=== PATIENT | female | born 1935 | race Caucasian/White ===

== ENCOUNTER → 2020-08-10 15:43 | Outpatient (CLI) | payer BC, MEDICAID, SELFPAY ==
[2020-08-12 11:01] LABS: Covid-19 Nasal PCR Sendout P&C POSITIVE
== END ==
PROVIDERS: Visit Provider Emergency Medicine
DX: U07.1 COVID-19 (principal)
CPT/HCPCS: U0004

== ENCOUNTER 2021-03-12 18:45 | Inpatient (IN) | payer BC, MEDICAID, SELFPAY ==
[2021-03-12] VITALS (21 sets, daily range): BP systolic 73–104; BP diastolic 36–85; PULSE 71–122; RESP 14–22; TEMP 35.4–36.5; O2SAT 92–99; BMI 32.3
--- NOTE | 2021-03-12 18:48 | HMH.EDGENADL ---
ED Disposition <Trevon Del Castillo - Last Filed: 03/12/21 20:11> Condition on Discharge: Serious - Critical Care Critical Care Time: No <Moiz Cruz - Last Filed: 03/12/21 23:53> Clinical Impression: Severe sepsis with acute organ dysfunction, Septic shock, Thrombocytopenia, Renal insufficiency UTI (urinary tract infection) Qualifiers: Urinary tract infection type: site unspecified Hematuria presence: without hematuria Qualified Code(s): N39.0 - Urinary tract infection, site not specified Disposition: Admitted As Inpatient Attestation: On 03/12/21, the high probability of a clinically significant, sudden or life threatening deterioration of the following system(s) required my full and direct attention, intervention and personal management. The time I documented below is in addition to time spent performing reported procedures but includes the following listed in this critical care notation. Medical Decision Making - Lab Data Result diagrams: 03/12/21 18:52 03/12/21 18:52 <Trevon Del Castillo - Last Filed: 03/12/21 20:11> - Medical Records Medical records reviewed: Yes: I reviewed the patient's medical records. - Payam Inquiry Pt receiving controlled substance: No - Lab Data Lab results reviewed: Yes: I reviewed the patient's lab results. Result diagrams: 03/12/21 18:52 03/12/21 18:52 - Radiology Data #1 Image(s): Chest, Knee Image Reviewed: Yes I reviewed the patient's radiology image, Yes I have reviewed radiologist's interpretation Preliminary Findings: No Fracture Seen - CT Data CT Scan: Head Time Received: 23:[address] Reviewed: Yes: I have viewed the radiologist's interpretation Preliminary Findings: Abnormal - ECG Data Tracing #1 Normal Sinus Rhythm: Yes Ischemic changes: non-specific ST-T wave changes - Tissue Perfus/Sepsis Re-Eval Sepsis Re-Evaluation Performed: Yes Date Performed: 03/12/21 Time Performed: 23:48 <Moiz Cruz - Last Filed: 03/12/21 23:53> Vital Signs: 03/12/21 18:46 03/12/21 19:01 03/12/21 19:04 Temperature 97.7 F Temperature Source Oral Pulse Rate 77 77 Pulse Rate [Right] 122 H Respiratory Rate 18 18 18 Blood Pressure 80/36 L 91/62 L Blood Pressure [Right Arm] 86/54 L Blood Pressure Mean 58 71 Blood Pressure Mean [Right Arm] 64 02 Sat by Pulse Oximetry 95 98 Oxygen Delivery Method Room Air 03/12/21 19:31 03/12/21 20:31 03/12/21 21:00 Temperature Temperature Source Pulse Rate 77 72 72 Pulse Rate [Right] Respiratory Rate 16 16 18 Blood Pressure 104/58 L 93/42 L 85/42 L Blood Pressure [Right Arm] Blood Pressure Mean 65 59 56 Blood Pressure Mean [Right Arm] 02 Sat by Pulse Oximetry 97 93 L 99 Oxygen Delivery Method 03/12/21 21:32 03/12/21 21:35 03/12/21 21:58 Temperature 95.8 F L 96.3 F L Temperature Source Rectal Rectal Pulse Rate 78 Pulse Rate [Right] Respiratory Rate 22 Blood Pressure 104/85 L Blood Pressure [Right Arm] Blood Pressure Mean 90 Blood Pressure Mean [Right Arm] 02 Sat by Pulse Oximetry 94 L Oxygen Delivery Method 03/12/21 22:00 03/12/21 22:17 03/12/21 22:25 Temperature 97.1 F L Temperature Source Rectal Pulse Rate 76 76 76 Pulse Rate [Right] Respiratory Rate 16 14 14 Blood Pressure 88/55 L 73/52 L 94/53 L Blood Pressure [Right Arm] Blood Pressure Mean 66 58 66 Blood Pressure Mean [Right Arm] 02 Sat by Pulse Oximetry 94 L 97 92 L Oxygen Delivery Method 03/12/21 22:30 03/12/21 22:45 03/12/21 23:00 Temperature Temperature Source Pulse Rate 78 76 79 Pulse Rate [Right] Respiratory Rate 16 15 16 Blood Pressure 86/40 L 85/38 L 80/52 L Blood Pressure [Right Arm] Blood Pressure Mean 55 61 54 Blood Pressure Mean [Right Arm] 02 Sat by Pulse Oximetry 94 L 96 94 L Oxygen Delivery Method 03/12/21 23:01 03/12/21 23:15 03/12/21 23:35 Temperature 96.6 F L 96.9 F L Temperature Source Rectal Rectal Pulse
--- NOTE | 2021-03-12 18:53 | CT_ITS ---
PROCEDURE INFORMATION: Exam: CT Head Without Contrast Exam date and time: 03/12/2021 6:53 PM Age: 85 years old Clinical indication: Altered mental status/memory loss; Confusion or disorientation; Patient HX: AMS TECHNIQUE: Imaging protocol: Computed tomography of the head without contrast. Radiation optimization: All CT scans at this facility use at least one of these dose optimization techniques: automated exposure control; mA and/or kV adjustment per patient size (includes targeted exams where dose is matched to clinical indication); or iterative reconstruction. COMPARISON: No relevant prior studies available. FINDINGS: Brain: Atrophy and chronic small vessel ischemic changes. No hemorrhage. No mass effect or midline shift. Large area of encephalomalacia in the left posterior parietal region. Cerebral ventricles: No ventriculomegaly. Paranasal sinuses: Visualized sinuses are unremarkable. No fluid levels. Mastoid air cells: Visualized mastoid air cells are well aerated. Bones/joints: Unremarkable. No acute fracture. Soft tissues: Unremarkable. IMPRESSION: Chronic changes in the brain but no acute intracranial abnormality.
--- NOTE | 2021-03-12 18:53 | XR_ITS ---
PROCEDURE INFORMATION: Exam: XR Chest Exam date and time: 03/12/2021 6:53 PM Age: 85 years old Clinical indication: Shortness of breath TECHNIQUE: Imaging protocol: XR of the chest. Views: 1 view. COMPARISON: No relevant prior studies available. FINDINGS: Lungs: Left lower lobe densities which could reflect atelectasis or pneumonia. Pleural spaces: Mild left pleural effusion. Heart/Mediastinum: Unremarkable. No cardiomegaly. Bones/joints: Unremarkable. IMPRESSION: Left lower lobe atelectasis versus pneumonia and mild left pleural effusion.
[2021-03-12 19:09] LABS: Basophils % 0.3 % (0.1-2.0); Eosinophils # 0.1 K/mm3 (0.0-0.4); Eosinophils % 2.2 % (0.1-12.0); Hematocrit 33.4 % (37.0-47.0); Hemoglobin 11.1 g/dL (12.2-16.2); Lymphocytes # 2.5 K/mm3 (0.7-4.5); Lymphocytes % 54.6 % (10-50); Mean Corpuscular HGB Conc 33.1 g/dL (31.8-35.4); Mean Corpuscular Hemoglobin 34.8 pg (27.0-31.2); Mean Corpuscular Volume 104.9 fl (81-99); Mean Platelet Volume 9.3 fl (7.4-10.4); Monocytes # 0.2 K/mm3 (0.1-1.0); Monocytes % 4.7 % (1.7-9.3); Neutrophils # 1.7 K/mm3 (1.8-7.8); Neutrophils % 38.2 % (37.0-80.0); Platelet Count 98 K/mm3 (142-424); Red Blood Count 3.19 M/mm3 (4.20-5.40); Red Cell Distribution Width 16.4 % (11.5-17.5); White Blood Count 4.6 K/mm3 (4.8-10.8)
--- NOTE | 2021-03-12 19:09 | XR_ITS ---
PROCEDURE INFORMATION: Exam: XR Right Knee Exam date and time: 03/12/2021 7:09 PM Age: 85 years old Clinical indication: Patient HX: Right knee bruising, unknown injury TECHNIQUE: Imaging protocol: XR Right knee. Views: 3 views. COMPARISON: No relevant prior studies available. FINDINGS: Bones/joints: Severe tricompartmental joint space narrowing and osteophyte formation. No acute fracture or dislocation. Soft tissues: Normal. IMPRESSION: Severe degenerative changes. No acute fracture or dislocation.
--- NOTE | 2021-03-12 19:12 | ECG_ITS ---
APPROVED REPORT Exam: Resting ECG HR:139 bpm ECG Measurements Heart Rate 139 AXES WY 104 P QRSd 4 QRS 0 QT 258 T -25 QTc 392 Conclusion Sinus rhythm with short WY with premature supraventricular complexes with frequent and consecutive premature ventricular complexes and fusion complexes Indeterminate axis Pulmonary disease pattern Nonspecific T wave abnormality Abnormal ECG Electronically signed by : Jatin Edwards MD 03/13/2021 09:39:22
[2021-03-12 19:14] LABS: MANUAL DIFFERENTIAL MANUAL DIFFERENTIAL (MANUAL DIFF)
[2021-03-12 19:24] LABS: Alanine Aminotransferase 15 U/L (12-78); Albumin Level 3.4 g/dl (3.5-5.0); Albumin/Globulin Ratio 0.9 (1.1-1.8); Alkaline Phosphatase 58 U/L (38-126); Aspartate Amino Transferase 35 U/L (14-36); Bilirubin,Total 0.4 mg/dl (0.2-1.3); Blood Urea Nitrogen 51 mg/dl (7-17); Calcium 9.2 mg/dl (8.4-10.2); Carbon Dioxide 26 mmol/L (22.0-30.0); Chloride 103 mmol/L (98-107); Creatinine Clearance Estimated 41 mL/min (50-200); Estimated Glomerular Filt Rate 33 ml/min (>60); GFR (African American) 40 ML/MIN (>60); Globulin 3.7 g/dL (1.3-3.2); Glucose 105 mg/dl (74-100); Sodium 138 mmol/L (136-145); Total Protein,Serum 7.1 g/dl (6.3-8.2)
[2021-03-12 19:35] LABS: ABG Base Excess -2.2 mmol/L (-2.4-2.3); ABG HCO3 21.7 mmhg (22.0-26.0); ABG Oxygen Saturation 97 % (90-100); ABG PCO2 31.3 mmhg (35.0-45.0); ABG PH 7.46 mmol/L (7.35-7.45); ABG PO2 87.1 mmhg (80-100); ABG TCO2 22.6 mmhg (23-27); Allen's Test Patient Unable; Oxygen RA %; Source Left Radial
[2021-03-12 19:36] LABS: Adenovirus,PCR Not Detected (NotDetected); Bordetella Pertussis Not Detected (NotDetected); Chlamydophila Pneumoniae, PCR Not Detected (NotDetected); Coronavirus 19, PCR Not Detected (NotDetected); Coronavirus 229E Not Detected (NotDetected); Coronavirus NL63 Not Detected (NotDetected); Coronavirus OC43 Not Detected (NotDetected); Coronovirus HKU1,PCR Not Detected (NotDetected); Human Metapneumovirus Not Detected (NotDetected); Influenza A, PCR Not Detected (NotDetected); Influenza AH1, 2009 Not Detected (NotDetected); Influenza AH1, PCR Not Detected (NotDetected); Influenza AH3,PCR Not Detected (NotDetected); Influenza B, PCR Not Detected (NotDetected); Mycoplasma Pneumoniae, PCR Not Detected (NotDetected); Parainfluenza 1, PCR Not Detected (NotDetected); Parainfluenza 2, PCR Not Detected (NotDetected); Parainfluenza 3, PCR Not Detected (NotDetected); Parainfluenza 4, PCR Not Detected (NotDetected); Respiratory Syncytial Virus Not Detected (NotDetected); Rhinovirus/Enterovirus Not Detected (NotDetected)
[2021-03-12 19:43] LABS: Lymphocytes % 75 % (10-50); Neutrophils % 25 % (42-76); Platelet Estimate Normal; RBC Morphology Normal; Rouleaux 1+; Total Cells Counted 100
[2021-03-12 20:02] LABS: Erythrocyte Sedimentation Rate 79 mm/hr (0-30)
[2021-03-12 20:03] LABS: Troponin I < 0.01 ng/ml (0.00-0.034)
[2021-03-12 20:04] LABS: NT Pro Brain Natriuretic Pep. 2290 pg/mL (0-450)
--- NOTE | 2021-03-12 21:34 | PC.NURSE ---
pt temp 95.8- rectal. deep hugger placed on patient at this time
[2021-03-12 21:39] LABS: Microscopic, Urine URINE MICROSCOPIC (MICROSCOPIC)
[2021-03-12 21:41] LABS: Appearance,Urine SL CLOUDY (Clear); Blood, Urine 1+ (Negative); Color,Urine YELLOW (Yellow); Glucose,Urine (UA) Negative (Negative); Ketones,Urine TRACE (Negative); Leukocyte Esterase,Urine 2+ (Negative); Nitrate,Urine Negative (Negative); PH,Urine 5.5 (5.0-8.5); Protein,Urine Negative (Negative); Specific Gravity, Urine 1.015 (1.005-1.030); Urobilinogen,Urine 0.2 EU/dl (0.2)
[2021-03-12 21:48] LABS: Bilirubin,Urine 1+ (Negative)
[2021-03-12 21:51] LABS: Bacteria,Urine 1+ /lpf
[2021-03-12 22:31] LABS: Lactic Acid 1.1 mmol/L (0.7-2.1)
[2021-03-13] VITALS (84 sets, daily range): BP systolic 74–133; BP diastolic 30–94; PULSE 51–109; RESP 13–22; TEMP -17.7–37.1; O2SAT 92–100; BMI 24.3
--- NOTE | 2021-03-13 00:50 | PC.NURSE ---
pt laying in bed. turned on right side, heels elevated at this time. pt has deep hugger on.
--- NOTE | 2021-03-13 02:00 | PC.NURSE ---
Levophed increased to 10 mcg/min
--- NOTE | 2021-03-13 02:10 | PC.NURSE ---
pt turned on left side. heels elevated. linens clean. deep hugger on pt
--- NOTE | 2021-03-13 02:45 | PC.NURSE ---
Levophed increased to 15 mcg/min. Vela bag changed to a Urometer for hourly I&O's
--- NOTE | 2021-03-13 03:00 | PC.NURSE ---
there are no Stepdown beds available at this time, pt will boarder in [facility]
--- NOTE | 2021-03-13 04:12 | PC.NURSE ---
pt laying in bed asleep.
--- NOTE | 2021-03-13 05:06 | PC.NURSE ---
pt turned on right side at this time. heels elevated.
--- NOTE | 2021-03-13 06:19 | PC.NURSE ---
pt asleep in bed.
[2021-03-13 06:26] LABS: Basophils % 0.4 % (0.1-2.0); Eosinophils # 0.1 K/mm3 (0.0-0.4); Eosinophils % 1.3 % (0.1-12.0); Hematocrit 33.9 % (37.0-47.0); Lymphocytes # 2.4 K/mm3 (0.7-4.5); Lymphocytes % 34.3 % (10-50); Mean Corpuscular HGB Conc 32.3 g/dL (31.8-35.4); Mean Corpuscular Hemoglobin 34.5 pg (27.0-31.2); Mean Corpuscular Volume 106.6 fl (81-99); Mean Platelet Volume 9.2 fl (7.4-10.4); Monocytes # 0.4 K/mm3 (0.1-1.0); Platelet Count 141 K/mm3 (142-424); Red Blood Count 3.18 M/mm3 (4.20-5.40); Red Cell Distribution Width 16.5 % (11.5-17.5); White Blood Count 6.9 K/mm3 (4.8-10.8)
[2021-03-13 06:38] LABS: Chloride 111 mmol/L (98-107); Sodium 142 mmol/L (136-145)
[2021-03-13 06:39] LABS: Potassium 4.5 mmoL/L (3.5-5.1)
[2021-03-13 06:41] LABS: Blood Urea Nitrogen 43 mg/dl (7-17); Creatinine Clearance Estimated 47 mL/min (50-200); Estimated Glomerular Filt Rate 39 ml/min (>60); GFR (African American) 47 ML/MIN (>60)
[2021-03-13 06:42] LABS: Anion Gap 15.5 mEq/L (5-15); Calcium 8.4 mg/dl (8.4-10.2); Carbon Dioxide 20 mmol/L (22.0-30.0); Glucose 121 mg/dl (74-100)
--- NOTE | 2021-03-13 07:07 | PC.NURSE ---
pt asleep in bed
--- NOTE | 2021-03-13 07:16 | HMH.HP ---
*Admission Date: 03/13/21 *Chief complaint: altered mental status *History of present illness: this pt was sent from [facility] for eval of altered mental status - 85y medical history of dementia stroke with residual right-sided weakness, bipolar, essential hypertension, previous ovarian cancer presents emergency department for evaluation as a senior living transfer for evaluation of altered mental status. Per report patient has becoming more confused over the past few days being only oriented to self. No further history from EMS. Patient states she has no acute complaints she has no pain she is able to tell me her full name where she is at her past medical history. She does states she has had some swelling and bruising to her right lower extremity she is unsure of the etiology. States she has some occasional burning in bilateral lower extremities but otherwise no complaints pt was found to have uti with assoc sepsis with shock and was admitted for treatment [facility] History I have reviewed the patient's past medical history: Yes Medical History: Reports:: Cancer, Hypertension, Peripheral Vascular Disease *Have you ever received a pneumonia vaccine?: Yes *Have you received a flu vaccine this season?: No Other Medical History: Reports: Anemia, Other - *Social History Smoking Status: Unknown if ever smoked Alcohol Intake: never *Occupational Status:: disabled *Travel in the last 8 weeks: None Family Hx:: Unable to obtain Review of Systems - Review of Systems Review of systems:: pertinent systems reviewed and negative unless documented below - Constitutional Reports weakness - Eyes Denies discharge - ENT Denies sore throat - *Cardiovascular Denies chest pain - *Respiratory Denies cough - *Gastrointestinal Denies abdominal pain - *Genitourinary Denies blood in urine - *Musculoskeletal Denies joint pain - Integumentary/Breasts Denies rash - *Neurologic Reports weakness, Denies localized weakness - Psychiatric Denies anxiety Meds Home Medications Medication Instructions Recorded Confirmed Type acetaminophen 500 mg tablet 500 mg PO Q4H PRN #90 tab 04/07/20 03/12/21 Rx aluminum hydrox-magnesium carb 95 30 ml PO TID PRN #355 ml 04/07/20 03/12/21 Rx mg-358 mg/15 mL oral suspension bisacodyl 10 mg rectal suppository 10 mg [place] DAILY PRN #16 each 04/07/20 03/12/21 Rx guaifenesin 100 mg/5 mL oral liquid 200 mg PO Q6H PRN #118 ml 04/07/20 03/12/21 Rx lactulose 10 gram/15 mL oral 30 g PO DAILY PRN #946 ml 04/07/20 03/12/21 Rx solution Divalproex Sodium [Depakote] 500 mg PO BID 03/12/21 03/12/21 History Furosemide [Furosemide 40MG tAB*] 40 mg PO DAILY 03/12/21 03/12/21 History Loperamide HCl [Imodium A-D] 4 mg PO TID 03/12/21 03/12/21 History Losartan Potassium [Cozaar 100mg 100 mg PO DAILY 03/12/21 03/12/21 History Tablets] Multivitamin 1 tab PO DAILY 03/12/21 03/12/21 History Potassium Chloride [Micro-K 10mEq 10 meq PO DAILY 03/12/21 03/12/21 History cap] Quetiapine Fumarate 50 mg PO BID 03/12/21 03/12/21 History Sennosides [senna] 8.6 mg PO BID 03/12/21 03/12/21 History Allergies Allergy/AdvReac Type Severity Reaction Status Date / Time doxycycline Allergy Verified 10/26/20 19:14 Penicillins Allergy Verified 10/26/20 19:14 Sulfa (Sulfonamide Allergy Verified 10/26/20 19:14 Antibiotics) Exam Vital signs and Labs for Last 24 Hours: Temp Pulse Resp BP Pulse Ox 98.3 F 102 H 22 109/51 L 92 L 03/13/21 05:00 03/13/21 06:46 03/13/21 06:46 03/13/21 06:46 03/13/21 06:46 Laboratory Results - last 24 hr 03/12/21 18:52: WBC 4.6 L, RBC 3.19 L, Hgb 11.1 L, Hct 33.4 L, MCV 104.9 H, MCH 34.8 H, MCHC 33.1, RDW 16.4, Plt Count 98 L, MPV 9.3, Neut % (Auto) 38.2, Lymph % (Auto) 54.6 H, [place] % (Auto) 4.7, Eos % (Auto) 2.2, Baso % (Auto) 0.3, Neut # (Auto) 1.7 L, Lymph # (Auto) 2.5, [place] # (Auto) 0.2, Eos # (Auto) 0.1, Baso # (Auto) 0.0, Total Counted 100, Neutrophils % (Manual) 25 L,
--- NOTE | 2021-03-13 07:30 | PC.NURSE ---
Levophed drip at 15 mcg/min at this time, vss 124/94, drip decreased to 13 mcg/min, vss
--- NOTE | 2021-03-13 08:00 | PC.NURSE ---
Spoke with charge nurse who states that they are moving some pt rooms and pt will have a room to be moved tp
--- NOTE | 2021-03-13 08:10 | P.CONPHA_ITS ---
[facility] Pharmacy VTE Monitoring - Patient Demographics Admission date: 03/12/21 Report Date: 03/13/21 Time: 08:10 Allergies/Adverse Reactions: Patient Allergies doxycycline Allergy (Verified 10/26/20 19:14) Penicillins Allergy (Verified 10/26/20 19:14) Sulfa (Sulfonamide Antibiotics) Allergy (Verified 10/26/20 19:14) Height: 1.68 m Weight: 90.718 kg Patient Problems: Current Active Problems UTI (urinary tract infection) (Acute) Severe sepsis with acute organ dysfunction (Acute) Septic shock (Acute) Thrombocytopenia (Acute) Renal insufficiency (Acute) Obesity (BMI 30-39.9) (Acute) Hemiplegia and hemiparesis following cerebral infarction affecting right dominant side (Chronic) Essential (primary) hypertension (Chronic) Unspecified dementia with behavioral disturbance (Chronic) - VTE Risk Labs: VTE Related Lab Results Hgb 11.0 g/dL (12.2-16.2) L 03/13/21 06:11 Hct 33.9 % (37.0-47.0) L 03/13/21 06:11 Plt Count 141 K/mm3 (142-424) L D 03/13/21 06:11 BUN 43 mg/dl (7-17) H 03/13/21 06:11 Creatinine 1.30 mg/dl (0.52-1.04) H 03/13/21 06:11 Estimated Creat Clear 47 mL/min (50-200) 03/13/21 06:11 - Prophylaxis VTE Prophylaxis Ordered?: Yes Types of VTE Prophylaxis: TEDS Knee High Location of Applied Device: Bilateral Lower Extremeties
--- NOTE | 2021-03-13 09:00 | XR_ITS ---
PROCEDURE INFORMATION: Exam: XR Chest Exam date and time: 03/13/2021 9:00 AM Age: 85 years old Clinical indication: Shortness of breath; Additional info: SOB TECHNIQUE: Imaging protocol: XR of the chest. Views: 1 view. COMPARISON: CR XR CHEST PORTABLE 03/12/2021 7:31 PM FINDINGS: Tubes, catheters and devices: Overlying EKG wires Lungs: Left perihilar and left basilar opacities may represent atelectasis or pneumonia.. Pleural spaces: Unremarkable. No pleural effusion. No pneumothorax. Heart/Mediastinum: Stable cardiac silhouette Bones/joints: Unremarkable. IMPRESSION: Left perihilar and left basilar opacities may represent atelectasis or pneumonia..
--- NOTE | 2021-03-13 09:03 | PC.NURSE ---
Rad at bedside
--- NOTE | 2021-03-13 10:39 | PC.NURSE ---
report called to ROHINI Durán
--- NOTE | 2021-03-13 10:39 | PC.NURSE ---
219 recently cleaned and made available, Received report from Joanna McculloughRN @ [phone]
--- NOTE | 2021-03-13 13:38 | PC.NURSE ---
1115 - Levo gtt titrated to 11 mcg/min 1215 - Levo gtt titrtated to 9 mcg/min 1315 - Levo gtt titrated to 7 mcg/min
[2021-03-14] VITALS (10 sets, daily range): BP systolic 104–159; BP diastolic 42–78; PULSE 70–110; RESP 16–20; TEMP 36.6–37.1; O2SAT 91–100; BMI 25.0
--- NOTE | 2021-03-14 03:21 | PC.NURSE ---
blood pressure remains labile, patient awakens to name now
--- NOTE | 2021-03-14 05:42 | PC.NURSE ---
shift summary levo drip decreased to 7 mcq at shift change, 2029 drip decreased to 5 mcq 2099 decreased to 3 mcq levo drip has been off since 2199 last night with blood pressures maintaining systolic greater than 100. patient has been very restless tonight picking at telemetry leads and pulse. has remained on r/a with sats greater than 92%
[2021-03-14 06:39] LABS: Eosinophils # 0.1 K/mm3 (0.0-0.4); Neutrophils # 2.4 K/mm3 (1.8-7.8); White Blood Count 3.6 K/mm3 (4.8-10.8)
[2021-03-14 06:47] LABS: Basophils % 0.2 % (0.1-2.0); Eosinophils % 2.6 % (0.1-12.0); Hemoglobin 9.1 g/dL (12.2-16.2); Lymphocytes % 26.5 % (10-50); Mean Corpuscular HGB Conc 32.8 g/dL (31.8-35.4); Mean Corpuscular Hemoglobin 36.3 pg (27.0-31.2); Mean Corpuscular Volume 110.5 fl (81-99); Mean Platelet Volume 9.2 fl (7.4-10.4); Monocytes # 0.2 K/mm3 (0.1-1.0); Monocytes % 4.7 % (1.7-9.3); Neutrophils % 66.1 % (37.0-80.0); Platelet Count 91 K/mm3 (142-424); Red Blood Count 2.51 M/mm3 (4.20-5.40); Red Cell Distribution Width 16.7 % (11.5-17.5)
[2021-03-14 06:48] LABS: Hematocrit 27.7 % (37.0-47.0)
[2021-03-14 06:49] LABS: Chloride 113 mmol/L (98-107); Potassium 3.6 mmoL/L (3.5-5.1); Sodium 142 mmol/L (136-145)
[2021-03-14 06:52] LABS: Anion Gap 11.6 mEq/L (5-15); Blood Urea Nitrogen 26 mg/dl (7-17); Calcium 8.1 mg/dl (8.4-10.2); Carbon Dioxide 21 mmol/L (22.0-30.0); Creatinine Clearance Estimated 48 mL/min (50-200); Estimated Glomerular Filt Rate 60 ml/min (>60); GFR (African American) 72 ML/MIN (>60); Glucose 63 mg/dl (74-100)
--- NOTE | 2021-03-14 09:55 | HMH.PHACONS ---
- Pharmacy Consult Date: 03/14/21 Time: 09:55 Referring provider: DR. EDGAR Reason for Consult:: VANCOMYCIN DOSING Allergies and ADEs:: Allergies Allergy/AdvReac Type Severity Reaction Status Date / Time doxycycline Allergy Verified 10/26/20 19:14 Penicillins Allergy Verified 10/26/20 19:14 Sulfa (Sulfonamide Allergy Verified 10/26/20 19:14 Antibiotics) Home Medications:: Home Medications Medication Instructions Recorded Confirmed Type acetaminophen 500 mg tablet 500 mg PO Q4H PRN #90 tab 04/07/20 03/12/21 Rx aluminum hydrox-magnesium carb 95 30 ml PO TID PRN #355 ml 04/07/20 03/12/21 Rx mg-358 mg/15 mL oral suspension bisacodyl 10 mg rectal suppository 10 mg [place] DAILY PRN #16 each 04/07/20 03/12/21 Rx guaifenesin 100 mg/5 mL oral liquid 200 mg PO Q6H PRN #118 ml 04/07/20 03/12/21 Rx lactulose 10 gram/15 mL oral 30 g PO DAILY PRN #946 ml 04/07/20 03/12/21 Rx solution Divalproex Sodium [Depakote] 500 mg PO BID 03/12/21 03/12/21 History Furosemide [Furosemide 40MG tAB*] 40 mg PO DAILY 03/12/21 03/12/21 History Loperamide HCl [Imodium A-D] 4 mg PO TID 03/12/21 03/12/21 History Losartan Potassium [Cozaar 100mg 100 mg PO DAILY 03/12/21 03/12/21 History Tablets] Multivitamin 1 tab PO DAILY 03/12/21 03/12/21 History Potassium Chloride [Micro-K 10mEq 10 meq PO DAILY 03/12/21 03/12/21 History cap] Quetiapine Fumarate 50 mg PO BID 03/12/21 03/12/21 History Sennosides [senna] 8.6 mg PO BID 03/12/21 03/12/21 History Height: 1.68 m Weight: 70.76 kg Laboratory Results:: Laboratory Results - last 24 hr 03/12/21 21:30: Urine Color Yellow, Urine Appearance Sl cloudy, Urine pH 5.5, Ur Specific [place] 1.015, Urine Protein Negative, Urine Glucose (UA) Negative, Urine Ketones Trace, Urine Blood 1+, Urine Nitrate Negative, Urine Bilirubin 1+ A, Urine Urobilinogen 0.2, Ur Leukocyte Esterase 2+ A, Urine RBC 3-5, Urine WBC 5-10, Ur Squamous Epith Cells 3-5, Urine Bacteria 1+ 03/12/21 22:10: Lactate 1.1 03/14/21 06:22: WBC 3.6 L D, RBC 2.51 L, Hgb 9.1 L, Hct 27.7 L, MCV 110.5 H, MCH 36.3 H, MCHC 32.8, RDW 16.7, Plt Count 91 L D, MPV 9.2, Neut % (Auto) 66.1, Lymph % (Auto) 26.5, [place] % (Auto) 4.7, Eos % (Auto) 2.6, Baso % (Auto) 0.2, Neut # (Auto) 2.4, Lymph # (Auto) 1.0, [place] # (Auto) 0.2, Eos # (Auto) 0.1, Baso # (Auto) 0.0 03/14/21 06:22: Sodium 142, Potassium 3.6, Chloride 113 H, Carbon Dioxide 21 L, Anion Gap 11.6, BUN 26 H D, Creatinine 0.90 D, Estimated Creat Clear 48, Estimated GFR 60, Est GFR ( Amer) 72 D, Glucose 63 L, Calcium 8.1 L Medical History: Reports:: Cancer, Hypertension, Peripheral Vascular Disease Denies:: Diabetes Mellitus Type 1, Diabetes Mellitus Type 2 Assessment and Plan (1) Obesity (BMI 30-39.9) Status: Acute Category: Medical Code(s): E66.9 - Obesity, unspecified (2) UTI (urinary tract infection) Status: Acute Qualifiers: Urinary tract infection type: site unspecified Hematuria presence: without hematuria Qualified Code(s): N39.0 - Urinary tract infection, site not specified Category: Medical Code(s): N39.0 - Urinary tract infection, site not specified (3) Severe sepsis with acute organ dysfunction Status: Acute Category: Medical Code(s): A41.9 - Sepsis, unspecified organism; R65.20 - Severe sepsis without septic shock (4) Septic shock Status: Acute Category: Medical Code(s): A41.9 - Sepsis, unspecified organism; R65.21 - Severe sepsis with septic shock (5) Thrombocytopenia Status: Acute Category: Medical Code(s): D69.6 - Thrombocytopenia, unspecified (6) Renal insufficiency Status: Acute Category: Medical Code(s): N28.9 - Disorder of kidney and ureter, unspecified (7) Hemiplegia and hemiparesis following cerebral infarction affecting right dominant side Status: Chronic Category: Medical Code(s): I69.351 - Hemiplegia and hemiparesis following cerebral infarction affecting right dominant side (8) Essential (prim
--- NOTE | 2021-03-14 13:13 | HMH.PHAINT ---
MEDICATION RECONCILIATION COMPLETED ON PATIENT USING MAR FROM [facility]-TERM. -DAVID FIELDS, STACEYD
--- NOTE | 2021-03-14 16:58 | PC.NURSE ---
pt is alert to self, has been up to chair part of shift and had a bath this shift, systolic has been 117-159 this shift with a HR of 93-110, has remained on room air, telemetry has shown NSR
--- NOTE | 2021-03-14 20:13 | HMH.ACPN2 ---
Internal Medicine - PN: Subj *Date: 03/14/21 *Time: 10:00 Interval history: pt sitting up in a chair, pt states she is upset due to the hospital not having good soap. pt denies any other c/o Exam Vital signs and Labs for Last 24 Hours: Temp Pulse Resp BP Pulse Ox 98.0 F 110 H 20 151/70 H 91 L 03/14/21 16:00 03/14/21 16:00 03/14/21 16:00 03/14/21 16:00 03/14/21 16:00 Laboratory Results - last 24 hr 03/12/21 21:30: Urine Color Yellow, Urine Appearance Sl cloudy, Urine pH 5.5, Ur Specific [place] 1.015, Urine Protein Negative, Urine Glucose (UA) Negative, Urine Ketones Trace, Urine Blood 1+, Urine Nitrate Negative, Urine Bilirubin 1+ A, Urine Urobilinogen 0.2, Ur Leukocyte Esterase 2+ A, Urine RBC 3-5, Urine WBC 5-10, Ur Squamous Epith Cells 3-5, Urine Bacteria 1+ 03/12/21 22:10: Lactate 1.1 03/14/21 06:22: WBC 3.6 L D, RBC 2.51 L, Hgb 9.1 L, Hct 27.7 L, MCV 110.5 H, MCH 36.3 H, MCHC 32.8, RDW 16.7, Plt Count 91 L D, MPV 9.2, Neut % (Auto) 66.1, Lymph % (Auto) 26.5, [place] % (Auto) 4.7, Eos % (Auto) 2.6, Baso % (Auto) 0.2, Neut # (Auto) 2.4, Lymph # (Auto) 1.0, [place] # (Auto) 0.2, Eos # (Auto) 0.1, Baso # (Auto) 0.0 03/14/21 06:22: Sodium 142, Potassium 3.6, Chloride 113 H, Carbon Dioxide 21 L, Anion Gap 11.6, BUN 26 H D, Creatinine 0.90 D, Estimated Creat Clear 48, Estimated GFR 60, Est GFR ( Amer) 72 D, Glucose 63 L, Calcium 8.1 L I & O for Last 24 hours: Intake & Output 03/12/21 03/13/21 03/14/2121 11:59 11:59 11:59 11:59 Intake Total 3195 / 3195 1675 / 1675 180 / 180 Output Total 345 / 345 800 / 800 200 / 200 Balance 2850 / 2850 875 / 875 -20 / -20 Weight 151 lb 3 oz 156 lb Microbiology Reports for the Last 24 Hours: Microbiology 03/12/21 22:10 Blood Blood Culture - Preliminary Gram Positive Cocci 03/12/21 21:30 Urine,Catheterized Urine Culture - Preliminary Gram Negative Rods - Constitutional no acute distress, thin - *Routine HEENT Exam Head: Present: normocephalic Eye: Present: PERRL ENT: Present: mucous membranes moist - *Routine Neck Exam Present: supple. Absent: lymphadenopathy - *Routine Respiratory Exam Present: CTA bilaterally - *Routine Cardiovascular Exam Present: RRR - *Routine Abdominal Exam Present: soft, normoactive bowel sounds. Absent: tenderness - *Routine Extremities Exam Present: normal capillary refill. Absent: cyanosis, clubbing, edema - *Routine Skin Exam Present: warm. Absent: rash - *Routine Neurological Exam Present: alert, altered mental status - Routine Psychiatric Exam Present: normal affect Assessment and Plan (1) Obesity (BMI 30-39.9) Status: Acute Category: Medical Code(s): E66.9 - Obesity, unspecified (2) UTI (urinary tract infection) Status: Acute Qualifiers: Urinary tract infection type: site unspecified Hematuria presence: without hematuria Qualified Code(s): N39.0 - Urinary tract infection, site not specified Category: Medical Code(s): N39.0 - Urinary tract infection, site not specified (3) Severe sepsis with acute organ dysfunction Status: Acute Category: Medical Code(s): A41.9 - Sepsis, unspecified organism; R65.20 - Severe sepsis without septic shock (4) Septic shock Status: Acute Category: Medical Code(s): A41.9 - Sepsis, unspecified organism; R65.21 - Severe sepsis with septic shock (5) Thrombocytopenia Status: Acute Category: Medical Code(s): D69.6 - Thrombocytopenia, unspecified (6) Renal insufficiency Status: Acute Category: Medical Code(s): N28.9 - Disorder of kidney and ureter, unspecified (7) Hemiplegia and hemiparesis following cerebral infarction affecting right dominant side Status: Chronic Category: Medical Code(s): I69.351 - Hemiplegia and hemiparesis following cerebral infarction affecting right dominant side (8) Essential (primary) hypertension Status: Chronic C
[2021-03-15] VITALS (7 sets, daily range): BP systolic 97–115; BP diastolic 55–65; PULSE 60–105; RESP 14–22; TEMP 36.1–36.9; O2SAT 90–97; BMI 25.1
[2021-03-15 06:32] LABS: Basophils % 0.1 % (0.1-2.0); Eosinophils # 0.2 K/mm3 (0.0-0.4); Eosinophils % 3.5 % (0.1-12.0); Hemoglobin 9.3 g/dL (12.2-16.2); Lymphocytes # 1.1 K/mm3 (0.7-4.5); Lymphocytes % 20.6 % (10-50); Mean Corpuscular HGB Conc 33.2 g/dL (31.8-35.4); Mean Corpuscular Hemoglobin 35.9 pg (27.0-31.2); Monocytes # 0.2 K/mm3 (0.1-1.0); Monocytes % 2.9 % (1.7-9.3); Neutrophils # 3.8 K/mm3 (1.8-7.8); Neutrophils % 72.9 % (37.0-80.0); Platelet Count 98 K/mm3 (142-424); Red Cell Distribution Width 16.6 % (11.5-17.5); White Blood Count 5.2 K/mm3 (4.8-10.8)
[2021-03-15 06:33] LABS: Hematocrit 28.1 % (37.0-47.0)
[2021-03-15 06:43] LABS: Chloride 113 mmol/L (98-107); Potassium 4.2 mmoL/L (3.5-5.1); Sodium 138 mmol/L (136-145)
[2021-03-15 06:46] LABS: Anion Gap 11.2 mEq/L (5-15); Blood Urea Nitrogen 15 mg/dl (7-17); Calcium 8.1 mg/dl (8.4-10.2); Carbon Dioxide 18 mmol/L (22.0-30.0); Creatinine Clearance Estimated 48 mL/min (50-200); Estimated Glomerular Filt Rate 95 ml/min (>60); GFR (African American) 116 ML/MIN (>60); Glucose 71 mg/dl (74-100)
--- NOTE | 2021-03-15 08:21 | SW/DCPLANNER ---
Addendum entered by Amelia Navarro 03/16/21 09:26: Updated patient information has been faxed to Tatiana with [facility]. The plan is for this patient to return today with IV antibiotic. Tatiana has also stated that patient does NOT need another COVID swab. This patient will discharge later today. Original Note: This patient currently resides at [facility]. I spoke with Tatiana from [place] whom stated that patient is [facility] level of care. Dr Cruz has stated that currently waiting urine cultures prior to patient being stable for discharge. Discharge date is unknown at this time.
--- NOTE | 2021-03-15 08:52 | HMH.ACPN2 ---
Internal Medicine - PN: Subj *Date: 03/16/21 *Time: 02:25 Interval history: more alert - near baseline - culture urine pending Exam Vital signs and Labs for Last 24 Hours: Temp Pulse Resp BP Pulse Ox 98.0 F 97 H 16 108/65 L 95 03/15/21 08:00 03/15/21 08:00 03/15/21 08:00 03/15/21 08:00 03/15/21 08:00 Laboratory Results - last 24 hr 03/15/21 06:23: WBC 5.2 D, RBC 2.60 L, Hgb 9.3 L, Hct 28.1 L, MCV 108.0 H, MCH 35.9 H, MCHC 33.2, RDW 16.6, Plt Count 98 L, MPV 9.0, Neut % (Auto) 72.9, Lymph % (Auto) 20.6, [place] % (Auto) 2.9, Eos % (Auto) 3.5, Baso % (Auto) 0.1, Neut # (Auto) 3.8, Lymph # (Auto) 1.1, [place] # (Auto) 0.2, Eos # (Auto) 0.2, Baso # (Auto) 0.0 03/15/21 06:23: Sodium 138, Potassium 4.2, Chloride 113 H, Carbon Dioxide 18 L, Anion Gap 11.2, BUN 15 D, Creatinine 0.60 D, Estimated Creat Clear 48, Estimated GFR 95, Est GFR ( Amer) 116 D, Glucose 71 L, Calcium 8.1 L I & O for Last 24 hours: Intake & Output 03/12/21 03/13/21 03/14/21 03/15/21 11:59 11:59 11:59 11:59 Intake Total 3195 / 3195 1675 / 1675 1547 / 1547 Output Total 345 / 345 800 / 800 700 / 700 Balance 2850 / 2850 875 / 875 847 / 847 Weight 151 lb 3 oz 156 lb Microbiology Reports for the Last 24 Hours: Microbiology 03/12/21 22:10 Blood Blood Culture - Preliminary Staphylococcus capitis 03/12/21 22:10 Blood Blood Culture - Preliminary NO GROWTH AFTER 48 HOURS 03/12/21 21:30 Urine,Catheterized Urine Culture - Preliminary Gram Negative Rods - Constitutional no acute distress - *Routine HEENT Exam Head: Present: normocephalic Eye: Present: EOMI, PERRL ENT: Present: mucous membranes dry - *Routine Neck Exam Present: supple - *Routine Respiratory Exam Present: decreased breath sounds - *Routine Cardiovascular Exam Present: RRR, murmur - *Routine Abdominal Exam Present: soft - *Routine Extremities Exam Absent: calf tenderness - *Routine Skin Exam Present: intact - *Routine Neurological Exam Present: alert. Absent: motor deficit - Routine Psychiatric Exam Present: unable to assess Assessment and Plan (1) Obesity (BMI 30-39.9) Status: Acute Category: Medical Code(s): E66.9 - Obesity, unspecified (2) UTI (urinary tract infection) Status: Acute Qualifiers: Urinary tract infection type: site unspecified Hematuria presence: without hematuria Qualified Code(s): N39.0 - Urinary tract infection, site not specified Category: Medical Code(s): N39.0 - Urinary tract infection, site not specified (3) Severe sepsis with acute organ dysfunction Status: Acute Category: Medical Code(s): A41.9 - Sepsis, unspecified organism; R65.20 - Severe sepsis without septic shock (4) Septic shock Status: Acute Category: Medical Code(s): A41.9 - Sepsis, unspecified organism; R65.21 - Severe sepsis with septic shock (5) Thrombocytopenia Status: Acute Category: Medical Code(s): D69.6 - Thrombocytopenia, unspecified (6) Renal insufficiency Status: Acute Category: Medical Code(s): N28.9 - Disorder of kidney and ureter, unspecified (7) Hemiplegia and hemiparesis following cerebral infarction affecting right dominant side Status: Chronic Category: Medical Code(s): I69.351 - Hemiplegia and hemiparesis following cerebral infarction affecting right dominant side (8) Essential (primary) hypertension Status: Chronic Category: Medical Code(s): I10 - Essential (primary) hypertension (9) Unspecified dementia with behavioral disturbance Status: Chronic Qualifiers: Dementia type: associated with other underlying disease Qualified Code(s): F02.81 - Dementia in other diseases classified elsewhere with behavioral disturbance Category: Medical Code(s): F03.91 - Unspecified dementia with behavioral disturbance
--- NOTE | 2021-03-15 13:25 | DIET.NUTRFU ---
Pt with AMS with dementia, PO intakes <25%. [place] confirmed she is on regular consistency diet with thin liquids. She has R sided weakness, adaptive equipment and assistance feeding added to diet order, moderate soft modifications made. Please encourage/cue at mealtimes. BID ensure on diet order.
--- NOTE | 2021-03-15 17:48 | PC.NURSE ---
NO ACUTE CHANGES. SHE IS ALERT TO SELF, VSS T/O SHIFT, DENIES PAIN.
--- NOTE | 2021-03-16 03:27 | PC.NURSE ---
Patient is alert to self. IV access was lost when this RN assessed the patient. Her right IV in her right hand had infiltrated and her IV in the LAC was leaking at the site. Several attempts where made to gain IV access with no success. MD was made aware and patient's ABX was changed to IM injection. Patient has a stage 2 on her right buttocks with a dressing applied and is clean, dry and intact. She is wearing JESSICA. Patient is being turned every 2 hours and tolerating well. Patient vital signs are stable, call light within reach, will continue to monitor.
[2021-03-16 03:50] VITALS: BP 101/61; PULSE 87; RESP 16; TEMP 36.4; O2SAT 95
[2021-03-16 05:22] VITALS: BMI 25.0
[2021-03-16 06:30] LABS: Basophils % 0.3 % (0.1-2.0); Eosinophils # 0.2 K/mm3 (0.0-0.4); Eosinophils % 3.5 % (0.1-12.0); Hemoglobin 9.6 g/dL (12.2-16.2); Lymphocytes # 1.5 K/mm3 (0.7-4.5); Lymphocytes % 25.6 % (10-50); Mean Corpuscular HGB Conc 33.3 g/dL (31.8-35.4); Mean Corpuscular Hemoglobin 35.6 pg (27.0-31.2); Mean Corpuscular Volume 107.1 fl (81-99); Mean Platelet Volume 11.1 fl (7.4-10.4); Monocytes # 0.4 K/mm3 (0.1-1.0); Monocytes % 6.2 % (1.7-9.3); Neutrophils # 3.8 K/mm3 (1.8-7.8); Neutrophils % 64.5 % (37.0-80.0); Platelet Count 119 K/mm3 (142-424); Red Blood Count 2.68 M/mm3 (4.20-5.40); Red Cell Distribution Width 16.9 % (11.5-17.5); White Blood Count 5.9 K/mm3 (4.8-10.8)
[2021-03-16 06:31] LABS: Hematocrit 28.7 % (37.0-47.0)
[2021-03-16 06:58] LABS: Chloride 109 mmol/L (98-107); Potassium 4.3 mmoL/L (3.5-5.1); Sodium 139 mmol/L (136-145)
[2021-03-16 07:01] LABS: Anion Gap 16.3 mEq/L (5-15); Blood Urea Nitrogen 9 mg/dl (7-17); Calcium 8.3 mg/dl (8.4-10.2); Carbon Dioxide 18 mmol/L (22.0-30.0); Creatinine Clearance Estimated 47 mL/min (50-200); Estimated Glomerular Filt Rate 80 ml/min (>60); GFR (African American) 97 ML/MIN (>60); Glucose 66 mg/dl (74-100)
[2021-03-16 08:00] VITALS: BP 98/49; PULSE 83; RESP 18; TEMP 36.6; O2SAT 100
--- NOTE | 2021-03-16 08:44 | HMH.DCSUM ---
General - General Admission date:: 03/13/21 Discharge date: 03/16/21 HPI HPI: this pt was sent from [facility] for eval of altered mental status - 85y medical history of dementia stroke with residual right-sided weakness, bipolar, essential hypertension, previous ovarian cancer presents emergency department for evaluation as a [facility] transfer for evaluation of altered mental status. Per report patient has becoming more confused over the past few days being only oriented to self. No further history from EMS. Patient states she has no acute complaints she has no pain she is able to tell me her full name where she is at her past medical history. She does states she has had some swelling and bruising to her right lower extremity she is unsure of the etiology. States she has some occasional burning in bilateral lower extremities but otherwise no complaints pt was found to have uti with assoc sepsis with shock and was admitted for treatment Hospital Course Hospital Course: this pt was sent from [facility] for eval of altered mental status - 85y medical history of dementia stroke with residual right-sided weakness, bipolar, essential hypertension, previous ovarian cancer presents emergency department for evaluation as a [facility] transfer for evaluation of altered mental status. Per report patient has becoming more confused over the past few days being only oriented to self. No further history from EMS. Patient states she has no acute complaints she has no pain she is able to tell me her full name where she is at her past medical history. She does states she has had some swelling and bruising to her right lower extremity she is unsure of the etiology. States she has some occasional burning in bilateral lower extremities but otherwise no complaints pt was found to have uti with assoc sepsis with shock and was admitted for treatment 03/12/21 CXR: IMPRESSION: Left lower lobe atelectasis versus pneumonia and mild left pleural effusion. Electronically signed by Darren Santos MD 03/12/[address]: FINDINGS: Brain: Atrophy and chronic small vessel ischemic changes. No hemorrhage. No mass effect or midline shift. Large area of encephalomalacia in the left posterior parietal region. Cerebral ventricles: No ventriculomegaly. Paranasal sinuses: Visualized sinuses are unremarkable. No fluid levels. Mastoid air cells: Visualized mastoid air cells are well aerated. Bones/joints: Unremarkable. No acute fracture. Soft tissues: Unremarkable. IMPRESSION: Chronic changes in the brain but no acute intracranial abnormality. Electronically signed by Darren Santos MD 03/12/21 R Knee XR: FINDINGS: Bones/joints: Severe tricompartmental joint space narrowing and osteophyte formation. No acute fracture or dislocation. Soft tissues: Normal. IMPRESSION: Severe degenerative changes. No acute fracture or dislocation. Electronically signed by Darren Santos MD 85-year-old female patient sitting up in bed respirations easy/even. Urinary culture pulmonary is growing gram-negative rods she has been on Invanz during her stay in the hospital and will be discharged back to the [facility] on Invanz IM x4 days. This plan was discussed with her and she is in agreement with this. PLAN: 1. We will discharge back to [facility] today 2. Invanz IM x4 days 3. We will follow along with blood cultures and urine culture 4. Follow-up with PCP in 1 week Objective Vital signs: Temp Pulse Resp BP Pulse Ox 97.9 F 83 18 98/49 L 100 03/16/21 08:00 03/16/21 08:00 03/16/21 08:00 03/16/21 08:00 03/16/21 08:00 no acute distress - *Routine HEENT Exam Head: Present: normocephalic Eye: Present: EOMI ENT: Present: mucous membranes moist - *Routine Neck Exam Present: trachea midline. Absent: tracheal deviation - *Routine Respiratory Exam Present: CTA bilaterally. Absent: acce
== END 2021-03-16 11:10 | DRG 871 ==
LOC: ER 20:48 → 2ND 22:07
PROVIDERS: Nurse Practitioner Family; Admitting Provider Emergency Medicine; Emergency Provider Emergency Medicine; PCP Emergency Medicine; Visit Provider Emergency Medicine
DX: A41.9 Sepsis, unspecified organism (principal); R65.21 Severe sepsis with septic shock; N39.0 Urinary tract infection, site not specified; I69.351 Hemiplegia and hemiparesis following cerebral infarction affecting right dominant side; F03.91 Unspecified dementia, unspecified severity, with behavioral disturbance; Z20.822 Contact with and (suspected) exposure to COVID-19; D69.6 Thrombocytopenia, unspecified; F03.90 Unspecified dementia, unspecified severity, without behavioral disturbance, psychotic disturbance, mood disturbance, and anxiety; F31.9 Bipolar disorder, unspecified; I10 Essential (primary) hypertension; Z85.43 Personal history of malignant neoplasm of ovary; I73.9 Peripheral vascular disease, unspecified; Z88.0 Allergy status to penicillin; Z88.2 Allergy status to sulfonamides; E66.9 Obesity, unspecified; Z68.25 Body mass index [BMI] 25.0-25.9, adult
CPT/HCPCS: 36415; 70450; 71045; 73562; 80048; 80053; 80165; 81001; 82803; 83605; 83880; 84145; 84484; 85007; 85025; 85651; 86140; 87040; 87077; 87086; 87088; 87186; 87581; 87633; 87798; 93005; 96365; 96367; 96375; 99283; J1335; J3370; Q9967

== ENCOUNTER 2021-04-20 11:45 | Inpatient (IN) | payer BC, SELFPAY ==
[2021-04-20] VITALS (20 sets, daily range): BP systolic 75–162; BP diastolic 30–139; PULSE 41–104; RESP 11–22; TEMP 35.4–36.7; O2SAT 76–97; BMI 24.5; BMI 24.7
--- NOTE | 2021-04-20 11:47 | CT_ITS ---
PROCEDURE: CT HEAD/BRAIN WO CON CLINICAL INDICATION: mental status change COMPARISON: CT CT HEAD/BRAIN WO CON from 03/12/2021 TECHNIQUE: Axial images obtained. All CT scans at the facility use one or more dose reduction, viz: automated exposure control, ma/kV adjustment per patient size (including targeted exams where dose is matched to indication, i.e. head), or iterative reconstruction technique. FINDINGS: Large area of encephalomalacia changes involves the left parietal lobe, temporal lobe, and the anterior lateral aspect of the left occipital lobe consistent with an old infarction. There is generalized atrophy. No midline shift, mass effect, intracranial hemorrhage, or hydrocephalus is evident. The ventricles are slightly dilated but may be related to ex vacuo dilatation from the atrophy. IMPRESSION: 1. No acute finding. 2. Atrophy with large area of encephalomalacia in the left parietal occipital and temporal region not significantly changed Dictated by: Rafat Hahn MD 04/20/2021 13:30 Rafat Hahn MD in OV 04/20/2021 13:30
--- NOTE | 2021-04-20 11:47 | XR_ITS ---
PROCEDURE: XR CHEST PORTABLE CLINICAL HISTORY: ams, fever COMPARISON: CR XR CHEST PORTABLE from 03/12/2021 CR XR CHEST PORTABLE from 03/13/2021 FINDINGS: The cardiomediastinal silhouette and pulmonary vascularity are within normal limits. There is increased density in the left CP angle. This may be due to overlying fat pad and mild patient rotation from the heart. There is minimal blunting of the right CP angle. No lobar consolidation or collapse. No acute bony abnormalities. IMPRESSION: Minimal blunting both CP angles which could be due to small pleural effusions. The blunting on the left could also be related to patient rotation and pericardial fat pad Dictated by: Rafat Hahn MD 04/20/2021 12:07 Rafat Hahn MD in OV 04/20/2021 12:07
--- NOTE | 2021-04-20 11:47 | HMH.EDGENADL ---
ED Disposition Clinical Impression: Urinary tract infection Qualifiers: Urinary tract infection type: acute cystitis Hematuria presence: without hematuria Qualified Code(s): N30.00 - Acute cystitis without hematuria Sepsis Qualifiers: Sepsis type: sepsis due to unspecified organism Sepsis acute organ dysfunction status: unspecified Qualified Code(s): A41.9 - Sepsis, unspecified organism Disposition: Admitted As Inpatient Condition on Discharge: Fair Instructions: DI for Altered Mental Status Referrals: Moiz Cruz MD [Primary Care Provider] - Time of Disposition: 16:08 - Critical Care Critical Care Time: Yes Attestation: On , the high probability of a clinically significant, sudden or life threatening deterioration of the following system(s) required my full and direct attention, intervention and personal management. The time I documented below is in addition to time spent performing reported procedures but includes the following listed in this critical care notation. Total Critical Care Time: 30 Vital system(s) involved:: Central Nervous System, Shock (Septic) My critical care processes included: Assessment & monitoring of V/S, Initial and Re-exams, Data Review/Interpretation, Coordinating Care, Medication Orders and management, Documentation Medical Decision Making - Medical Records Medical records reviewed: Yes: I reviewed the patient's medical records. - Payam Inquiry Pt receiving controlled substance: No Vital Signs: 04/20/21 11:46 04/20/21 12:00 04/20/21 12:30 Temperature 95.8 F L Temperature Source Rectal Pulse Rate 62 41 L Pulse Rate [Radial] 68 Respiratory Rate 22 Blood Pressure 99/56 L 93/57 L Blood Pressure [Right Arm] 95/52 L Blood Pressure Mean 71 69 Blood Pressure Mean [Right Arm] 66 Blood Pressure Position [Right Arm] Sitting 02 Sat by Pulse Oximetry 90 L 82 L 89 L Oxygen Delivery Method Room Air 04/20/21 12:55 04/20/21 13:30 04/20/21 14:01 Temperature Temperature Source Pulse Rate 63 68 Pulse Rate [Radial] Respiratory Rate Blood Pressure 79/30 L 75/46 L Blood Pressure [Right Arm] Blood Pressure Mean 51 57 Blood Pressure Mean [Right Arm] Blood Pressure Position [Right Arm] 02 Sat by Pulse Oximetry 76 L 84 L 88 L Oxygen Delivery Method - Lab Data Lab Results 04/20/21 12:00: WBC 9.1, RBC 2.73 L, Hgb 10.0 L, Hct 31.2 L, MCV 114.4 H, MCH 36.5 H, MCHC 31.9, RDW 17.6 H, Plt Count 222, MPV 9.6, Neut % (Auto) 76.0, Lymph % (Auto) 19.2, [place] % (Auto) 4.2, Eos % (Auto) 0.3, Baso % (Auto) 0.3, Neut # (Auto) 6.9, Lymph # (Auto) 1.7, [place] # (Auto) 0.4, Eos # (Auto) 0.0, Baso # (Auto) 0.0 04/20/21 12:00: Lactate 1.5 04/20/21 12:00: SARS-CoV-2 (PCR) Not detected, Influenza A Untype (PCR) Not detected, Influenza Type B (PCR) Not detected 04/20/21 12:58: Sodium 135 L, Potassium 5.9 H, Chloride 103, Carbon Dioxide 25, Anion Gap 12.9, BUN 38 H, Creatinine 1.40 H, Estimated Creat Clear 31, Estimated GFR 36 L, Est GFR ( Amer) 43 L, Glucose 81, Calcium 8.4, Total Bilirubin 1.5 H, AST 106 H, ALT 17, Alkaline Phosphatase 51, Total Protein 7.4, Albumin 3.0 L, Globulin 4.4 H, Albumin/Globulin Ratio 0.7 L, Lipase < 10 L 04/20/21 12:58: Procalcitonin 0.124 04/20/21 13:15: Urine Color Yellow, Urine Appearance Cloudy, Urine pH 6.5, Ur Specific [place] 1.020, Urine Protein 1+, Urine Glucose (UA) Negative, Urine Ketones Negative, Urine Blood 2+, Urine Nitrate Negative, Urine Bilirubin 1+ A, Urine Urobilinogen 0.2, Ur Leukocyte Esterase 3+ A, Urine RBC 5-10, Urine WBC 20-50, Ur Squamous Epith Cells Occasional, Urine Bacteria 1+ Result diagrams: 04/20/21 12:00 04/20/21 12:58 Orders (Tests/Meds): ED MEDICATIONS Generic Name Dose Route Start Last Admin Trade Name Freq PRN Reason Stop Dose Admin Ertapenem 1 gm/ Sodium 50 mls @ 100 mls/hr 04/20/21 14:30 04/20/21 14:37 Chloride IV 05/04/21 14:29 100 mls/hr Q24H RYAN Administration Disco
[2021-04-20 12:09] LABS: Coronavirus 19, PCR Not Detected (NotDetected); Influenza A, PCR Not Detected (NotDetected); Influenza B, PCR Not Detected (NotDetected)
--- NOTE | 2021-04-20 12:11 | PC.NURSE ---
ottoniel notified of CT head order, spoke with Vannessa asked lab to come down to collect blood on pt, spoke with wilder
[2021-04-20 12:18] LABS: Lactic Acid 1.5 mmol/L (0.7-2.1)
[2021-04-20 12:39] LABS: Basophils % 0.3 % (0.1-2.0); Eosinophils % 0.3 % (0.1-12.0); Hematocrit 31.2 % (37.0-47.0); Lymphocytes # 1.7 K/mm3 (0.7-4.5); Lymphocytes % 19.2 % (10-50); Mean Corpuscular HGB Conc 31.9 g/dL (31.8-35.4); Mean Corpuscular Hemoglobin 36.5 pg (27.0-31.2); Mean Corpuscular Volume 114.4 fl (81-99); Mean Platelet Volume 9.6 fl (7.4-10.4); Monocytes # 0.4 K/mm3 (0.1-1.0); Monocytes % 4.2 % (1.7-9.3); Neutrophils # 6.9 K/mm3 (1.8-7.8); Platelet Count 222 K/mm3 (142-424); Red Blood Count 2.73 M/mm3 (4.20-5.40); Red Cell Distribution Width 17.6 % (11.5-17.5); White Blood Count 9.1 K/mm3 (4.8-10.8)
[2021-04-20 13:17] LABS: Microscopic, Urine URINE MICROSCOPIC (MICROSCOPIC)
[2021-04-20 13:20] LABS: Appearance,Urine CLOUDY (Clear); Blood, Urine 2+ (Negative); Color,Urine YELLOW (Yellow); Glucose,Urine (UA) Negative (Negative); Ketones,Urine Negative (Negative); Leukocyte Esterase,Urine 3+ (Negative); Nitrate,Urine Negative (Negative); PH,Urine 6.5 (5.0-8.5); Protein,Urine 1+ (Negative); Urobilinogen,Urine 0.2 EU/dl (0.2)
[2021-04-20 13:23] LABS: Bilirubin,Urine 1+ (Negative)
[2021-04-20 13:34] LABS: Squamous Epithelial Cell,Urine Occasional #/hpf (0-5); WBC,Urine 20-50 #/hpf (0-3)
[2021-04-20 13:35] LABS: Bacteria,Urine 1+ /lpf
[2021-04-20 13:40] LABS: Alanine Aminotransferase 17 U/L (12-78); Albumin/Globulin Ratio 0.7 (1.1-1.8); Alkaline Phosphatase 51 U/L (38-126); Aspartate Amino Transferase 106 U/L (14-36); Bilirubin,Total 1.5 mg/dl (0.2-1.3); Blood Urea Nitrogen 38 mg/dl (7-17); Calcium 8.4 mg/dl (8.4-10.2); Carbon Dioxide 25 mmol/L (22.0-30.0); Chloride 103 mmol/L (98-107); Creatinine Clearance Estimated 31 mL/min (50-200); Estimated Glomerular Filt Rate 36 ml/min (>60); GFR (African American) 43 ML/MIN (>60); Globulin 4.4 g/dL (1.3-3.2); Glucose 81 mg/dl (74-100); Sodium 135 mmol/L (136-145); Total Protein,Serum 7.4 g/dl (6.3-8.2)
[2021-04-20 13:42] LABS: Anion Gap 12.9 mEq/L (5-15); Lipase < 10 U/L (23-300)
[2021-04-20 13:43] LABS: Potassium 5.9 mmoL/L (3.5-5.1)
[2021-04-20 13:58] LABS: Procalcitonin 0.124 ng/mL (0.0-2.0)
--- NOTE | 2021-04-20 14:02 | PC.NURSE ---
Alarm has gone off a couple times for pt O2 sat, checked pt and she talked and communicate, without be winded
--- NOTE | 2021-04-20 19:00 | PC.NURSE ---
lt iv infiltrated iv pulled. restarted 20 angio rt arm
--- NOTE | 2021-04-20 19:53 | PC.NURSE ---
report called to floor
--- NOTE | 2021-04-20 20:03 | HMH.HP ---
*Admission Date: 04/20/21 *Chief complaint: altered mental status *History of present illness: this patient was sent from [facility]--year-old female presenting to the emergency department from [facility] with altered mental status. Staff today noticed that she seemed more confused, fatigued. She has a history of urinary tract infections. They are concerned for repeat infection and possible sepsis. Patient is complaining of pain in both of her legs. Denies any abdominal pain, dysuria, fevers, chills, chest pain, headache. No known falls. No recent nausea or vomiting. No recent antibiotic use. summary this is an 85-year-old female with history of frequent urinary tract infections and dementia presenting to the emergency department with altered mental status. Patient clinically stable on arrival. Concern for urinary tract infection, sepsis, anemia, pneumonia, Covid. Will obtain CBC, CMP, urinalysis, chest x-ray, EKG, troponin profile, noncontrasted head CT. Given IV fluid bolus and 2 g IV Rocephin Initial laboratory results show hyperkalemia at 5.9. Patient given 1 g calcium gluconate. 10 units IV insulin and 1 amp D50. Other labs show chronic kidney disease with creatinine of 1.4. Urinalysis shows signs of acute urinary tract infection. Patient's blood pressure down trended, now concern for severe sepsis. She has received 1 L IV fluid. Will broaden to 30 cc/kg. Given ertapenem. Blood cultures pending. After 2 L of IV fluids, calcium, insulin, glucose patient was much more awake and alert. She is speaking in full sentences. Blood pressure responded appropriately, mean arterial pressure now 70. Presentation most concerning for urinary tract infection. Will admit for further management. [facility] History I have reviewed the patient's past medical history: Yes Medical History: Reports:: Atherosclerotic Heart Disease, Cancer, Congenital Heart Disease, Hypertension, Peripheral Vascular Disease Denies:: Diabetes Mellitus Type 1, Diabetes Mellitus Type 2 *Have you ever received a pneumonia vaccine?: Yes *Have you received a flu vaccine this season?: Yes Other Medical History: Reports: Anemia, Other - *Social History Smoking Status: Unknown if ever smoked Alcohol Intake: never *Occupational Status:: retired Housing: [facility] Household Members: other *Travel in the last 8 weeks: None Family Hx:: Unable to obtain, Non-contributory Review of Systems - Review of Systems Review of systems:: pertinent systems reviewed and negative unless documented below - Constitutional Reports weakness, Denies fever(s) - Eyes Denies change in vision - ENT Denies sore throat - *Cardiovascular Denies chest pain - *Respiratory Denies cough - *Gastrointestinal Denies abdominal pain - *Genitourinary Denies blood in urine - *Musculoskeletal Denies joint pain - Integumentary/Breasts Denies rash - *Neurologic Denies localized weakness, Denies seizure-like activity - Psychiatric Reports confusion Meds Home Medications Medication Instructions Recorded Confirmed Type acetaminophen 500 mg tablet 500 mg PO Q4H PRN #90 tab 04/07/20 04/20/21 Rx aluminum hydrox-magnesium carb 95 30 ml PO TID PRN #355 ml 04/07/20 04/20/21 Rx mg-358 mg/15 mL oral suspension bisacodyl 10 mg rectal suppository 10 mg MD DAILY PRN #16 each 04/07/20 04/20/21 Rx guaifenesin 100 mg/5 mL oral liquid 200 mg PO Q6H PRN #118 ml 04/07/20 04/20/21 Rx lactulose 10 gram/15 mL oral 30 g PO DAILY PRN #946 ml 04/07/20 04/20/21 Rx solution Divalproex Sodium [Depakote] 500 mg PO BID 03/12/21 04/20/21 History Furosemide [Furosemide 40MG tAB*] 40 mg PO DAILY 03/12/21 04/20/21 History Loperamide HCl [Imodium A-D] 4 mg PO NEEDED PRN 03/12/21 04/20/21 History Losartan Potassium [Cozaar 100mg 100 mg PO DAILY 03/12/21 04/20/21 History Tablets] Multivitamin 1 tab PO DAILY 03/12/21 04/20/21 History Potassium Chloride [Micro-K 10mEq 10
--- NOTE | 2021-04-20 22:30 | PC.NURSE ---
Called for update on room status at this time. Was told by staff that house keeping is finishing up cleaning the room and they will be able to transfer the pt shortly.
--- NOTE | 2021-04-20 22:47 | PC.NURSE ---
patient up to floor via stretcher
[2021-04-21] VITALS (12 sets, daily range): BP systolic 81–114; BP diastolic 52–76; PULSE 66–106; RESP 14–20; TEMP 34.3–37.1; O2SAT 90–94; BMI 24.7; BMI 24.8
--- NOTE | 2021-04-21 03:03 | PC.WOUNDNOTE ---
Dressing's placed on both sores. C/D/I
--- NOTE | 2021-04-21 03:21 | PC.NURSE ---
pt is A/O to self only. Pt is on 2L NC with O2 stats >90%. Pt denies any pain t/o shift. Vela in place draining dark yellow urine with sediment. Pt has one unstageable pressure ulcer in the middle of coccyx, right cheek she has stage 2 ulcer present. Dressing's applied to both sore. Pt has been q2h turn. VSS, call light within reach, will continue to monitor. Pt is ledesma of the court called after hour's number and spoke with Sanam Fischer who gave consent for photographs and to be treated.
--- NOTE | 2021-04-21 08:00 | PC.NURSE ---
Dr. Ojeda notified of consult on pt.
--- NOTE | 2021-04-21 08:34 | P.CONPHA_ITS ---
[facility] Pharmacy VTE Monitoring - Patient Demographics Admission date: 04/21/21 Report Date: 04/21/21 Time: 08:34 Allergies/Adverse Reactions: Patient Allergies doxycycline Allergy (Verified 03/22/21 12:33) Penicillins Allergy (Verified 03/22/21 12:33) Sulfa (Sulfonamide Antibiotics) Allergy (Verified 03/22/21 12:33) Height: 1.63 m Weight: 65.771 kg Patient Problems: Current Active Problems UTI (urinary tract infection) (Acute) Septic shock (Acute) Sepsis (Acute) JOHNNY (acute kidney injury) (Acute) Hyperkalemia (Acute) Anemia, unspecified (Chronic) - VTE Risk Labs: VTE Related Lab Results Hgb 10.0 g/dL (12.2-16.2) L 04/20/21 12:00 Hct 31.2 % (37.0-47.0) L 04/20/21 12:00 Plt Count 222 K/mm3 (142-424) 04/20/21 12:00 BUN 38 mg/dl (7-17) H 04/20/21 12:58 Creatinine 1.40 mg/dl (0.52-1.04) H 04/20/21 12:58 Estimated Creat Clear 31 mL/min (50-200) 04/20/21 12:58 Clinical Trial Participant: No - Prophylaxis VTE Prophylaxis Ordered?: Yes Types of VTE Prophylaxis: TEDS Knee High
[2021-04-21 09:31] LABS: Basophils % 0.2 % (0.1-2.0); Eosinophils % 0.4 % (0.1-12.0); Hematocrit 30.5 % (37.0-47.0); Hemoglobin 9.5 g/dL (12.2-16.2); Lymphocytes # 0.6 K/mm3 (0.7-4.5); Lymphocytes % 7.3 % (10-50); Mean Corpuscular HGB Conc 31.3 g/dL (31.8-35.4); Mean Corpuscular Volume 115.1 fl (81-99); Mean Platelet Volume 8.3 fl (7.4-10.4); Monocytes # 0.3 K/mm3 (0.1-1.0); Monocytes % 3.1 % (1.7-9.3); Neutrophils # 7.1 K/mm3 (1.8-7.8); Neutrophils % 89.1 % (37.0-80.0); Platelet Count 125 K/mm3 (142-424); Red Blood Count 2.65 M/mm3 (4.20-5.40); Red Cell Distribution Width 17.3 % (11.5-17.5)
[2021-04-21 09:32] LABS: MANUAL DIFFERENTIAL MANUAL DIFFERENTIAL (MANUAL DIFF)
[2021-04-21 09:47] LABS: Anion Gap 12.1 mEq/L (5-15); Blood Urea Nitrogen 29 mg/dl (7-17); Calcium 7.5 mg/dl (8.4-10.2); Carbon Dioxide 18 mmol/L (22.0-30.0); Chloride 115 mmol/L (98-107); Creatinine Clearance Estimated 37 mL/min (50-200); Estimated Glomerular Filt Rate 43 ml/min (>60); GFR (African American) 52 ML/MIN (>60); Glucose 64 mg/dl (74-100); Potassium 4.1 mmoL/L (3.5-5.1); Sodium 141 mmol/L (136-145)
[2021-04-21 09:48] LABS: Hypochromasia 1+; Lymphocytes % 8 % (10-50); Macrocytosis 1+; Monocytes % 1 % (2-9); Neutrophils % 91 % (42-76); Platelet Estimate Normal; Total Cells Counted 100
--- NOTE | 2021-04-21 12:24 | HMH.ACPN2 ---
Internal Medicine - PN: Umberto *Date: 04/21/21 *Time: 08:50 Interval history: while rounding was notified bp 70/34 and low hr. when entering the room pt was yelling due to staff checking temp. pt is alert, hr 78, bp 114/73. low temp bear hugger applied. Exam Vital signs and Labs for Last 24 Hours: Temp Pulse Resp BP Pulse Ox 96.8 F L 103 H 20 95/57 L 92 L 04/21/21 12:02 04/21/21 12:02 04/21/21 12:02 04/21/21 12:02 04/21/21 08:00 Laboratory Results - last 24 hr 04/20/21 12:00: WBC 9.1, RBC 2.73 L, Hgb 10.0 L, Hct 31.2 L, MCV 114.4 H, MCH 36.5 H, MCHC 31.9, RDW 17.6 H, Plt Count 222, MPV 9.6, Neut % (Auto) 76.0, Lymph % (Auto) 19.2, Cannon % (Auto) 4.2, Eos % (Auto) 0.3, Baso % (Auto) 0.3, Neut # (Auto) 6.9, Lymph # (Auto) 1.7, Cannon # (Auto) 0.4, Eos # (Auto) 0.0, Baso # (Auto) 0.0 04/20/21 12:00: SARS-CoV-2 (PCR) Not detected, Influenza A Untype (PCR) Not detected, Influenza Type B (PCR) Not detected 04/20/21 12:58: Sodium 135 L, Potassium 5.9 H, Chloride 103, Carbon Dioxide 25, Anion Gap 12.9, BUN 38 H, Creatinine 1.40 H, Estimated Creat Clear 31, Estimated GFR 36 L, Est GFR ( Amer) 43 L, Glucose 81, Calcium 8.4, Total Bilirubin 1.5 H, AST 106 H, ALT 17, Alkaline Phosphatase 51, Total Protein 7.4, Albumin 3.0 L, Globulin 4.4 H, Albumin/Globulin Ratio 0.7 L, Lipase < 10 L 04/20/21 12:58: Procalcitonin 0.124 04/20/21 13:15: Urine Color Yellow, Urine Appearance Cloudy, Urine pH 6.5, Ur Specific [place] 1.020, Urine Protein 1+, Urine Glucose (UA) Negative, Urine Ketones Negative, Urine Blood 2+, Urine Nitrate Negative, Urine Bilirubin 1+ A, Urine Urobilinogen 0.2, Ur Leukocyte Esterase 3+ A, Urine RBC 5-10, Urine WBC 20-50, Ur Squamous Epith Cells Occasional, Urine Bacteria 1+ 04/21/21 09:10: WBC 8.0, RBC 2.65 L, Hgb 9.5 L, Hct 30.5 L, MCV 115.1 H, MCH 36.0 H, MCHC 31.3 L, RDW 17.3, Plt Count 125 L D, MPV 8.3, Neut % (Auto) 89.1 H, Lymph % (Auto) 7.3 L, Cannon % (Auto) 3.1, Eos % (Auto) 0.4, Baso % (Auto) 0.2, Neut # (Auto) 7.1, Lymph # (Auto) 0.6 L, Cannon # (Auto) 0.3, Eos # (Auto) 0.0, Baso # (Auto) 0.0, Total Counted 100, Neutrophils % (Manual) 91 H, Lymphocytes % (Manual) 8 L, Monocytes % (Manual) 1 L, Platelet Estimate Normal, Hypochromasia 1+, Macrocytosis 1+ 04/21/21 09:10: Sodium 141, Potassium 4.1 D, Chloride 115 H, Carbon Dioxide 18 L, Anion Gap 12.1, BUN 29 H, Creatinine 1.20 H, Estimated Creat Clear 37, Estimated GFR 43 L, Est GFR ( Amer) 52 L D, Glucose 64 L D, Calcium 7.5 L I & O for Last 24 hours: Intake & Output 04/19/21 04/20/21 04/21/21 04/22/21 11:59 11:59 11:59 11:59 Intake Total 3100 / 3100 Output Total 250 / 250 Balance 2850 / 2850 Weight 143 lb 145 lb 8.081 oz Microbiology Reports for the Last 24 Hours: Microbiology 04/20/21 13:15 Urine,Catheterized Urine Culture - Preliminary Gram Negative Rods - Constitutional chronically ill appearing - *Routine HEENT Exam Head: Present: normocephalic Eye: Present: PERRL ENT: Present: mucous membranes moist - *Routine Neck Exam Present: supple. Absent: lymphadenopathy - *Routine Respiratory Exam Present: decreased breath sounds, rhonchi - *Routine Cardiovascular Exam Present: RRR - *Routine Abdominal Exam Present: soft, normoactive bowel sounds. Absent: tenderness - *Routine Extremities Exam Present: normal capillary refill. Absent: cyanosis, clubbing, edema - *Routine Skin Exam Present: warm, wounds. Absent: rash Comments: stage 3 to sacrum - *Routine Neurological Exam Present: alert, altered mental status Assessment and Plan (1) UTI (urinary tract infection) Status: Acute Qualifiers: Urinary tract infection type: acute cystitis Hematuria presence: without hematuria Qualified Code(s): N30.00 - Acute cystitis without hematuria Category: Medical Code(s): N39.0 - Urinary tract infection, site not specified (2) JOHNNY (acute kidney injury) Status: Acute Cat
--- NOTE | 2021-04-21 13:44 | HMH.PTWOUND ---
Rehab Inpt Wound Evaluation Rehab IP Wound Evaluation Start: 04/21/21 12:36 Freq: ONCE Status: Active Protocol: Document 04/21/21 13:00 PWELIZABETH (Rec: 04/21/21 13:43 [email or web address] [id number]) Rehab PT Wound Assessment Patient Status Premedicated Prior to Dressing Change No Subjective Subjective This is the initial wound care evaluation. Pt is an 85 y/o female from [facility] with altered mental status. She is a [facility] and presents today with a sacral pressure ulcer - unstagable due to slough coverage. Pt is A&O to name only. - note done by Bijal Koroma, SPT Wound Lower Medial Sacrum Wound Type Pressure Ulcer Is This a Chronic Wound Yes Wound Staging Unstageable Query Text:Stage I - Unbroken, red skin, no blanching. Stage II - Skin broken, superficial skin loss involving epidermis alone or also dermis. Partial loss of skin layers. Stage III - Pressure area involves epidermis, dermis and subcutaneous tissue, full thickness skin loss. Stage IV - Pressure area involves epidermis, subcutaneous tissue, bone and other supportive tissue. Full thickness skin loss with extensive destruction of underlying tissue and structures. Wound Length (cm) 4 Wound Width (cm) 2 Wound Bed Appearance Yellow,Slough,Eschar,Necrotic Percentage Granulated (%) 0 Percentage of Slough (%) 100 Percentage of Eschar (Black) (%) 10 Percentage of Eschar (Yellow) (%) 90 Wound Margins Description Macerated Surrounding Tissue Appearance [place] Surrounding Tissue Temperature Warm Wound Drainage Description Yellow Drainage Amount Small Drainage Odor Slight Odor Dressing Status Changed Wound Topical Solution/Irrigant Antibiotic Irrigant Primary Dressing Silver Dressing Comment tegaderm ag mesh Wound Secondary Dressing Type Silver Dressing,Absorbant Pad Comment opticell ag, opifoam Dressing Change Date 04/21/21 Dressing Change Patient Tolerance Tolerated Poorly Plan/Recommendation Comment Nursing to monitor patient and wound satus daily. No sharp debridment recommended at this
--- NOTE | 2021-04-21 14:09 | DIET.NUTRFU ---
Nutritional assessment, IP/consult completed. Pt with severe malnutrition rt dementia. Pt with stage III DU. TID protein fortified foods and daily ensure on order. Pt requires total assistance feeding, please encourage/cue at mealtimes prioritizing protein foods and encourage supplements t/o the day.
--- NOTE | 2021-04-21 19:40 | PC.NURSE ---
Bolused pt this afternoon, BP has been low this shift. NS bolus given x 1. BP stable at this time. VSS. Temp has improved. This am bare hugger was applied r/t rectal temp of 93.0. Dr. Ojeda was made aware of order for central line and he wanted a PICC attempted. Have attempted to get an u/s guided IV and was successful x 2, although both have infiltrated. Pt does have one IV in the RLE. Pts arms are very edematous and L arm has been weeping this shift. Hve elevated arms this shift. Skin also has scattered bruises
--- NOTE | 2021-04-21 21:43 | PC.NURSE ---
Paged pharmacy at 2100 due to needing to crush meds. Pt has delayed release Divalproex 500mg. Pharmacy will switch to divalproex sprinkles.
[2021-04-22] VITALS (16 sets, daily range): BP systolic 80–141; BP diastolic 48–86; PULSE 50–110; RESP 16–22; TEMP 36.3–37.6; O2SAT 91–99; BMI 24.8
[2021-04-22 00:59] LABS: POC Glucose,Bedside 80 (70-110)
--- NOTE | 2021-04-22 02:28 | PC.NURSE ---
Dr Edwards pged at 0120 due to patients blood pressure 98/48, Dr Edwards ordered 1L Normal saline bolus once. Will continue to monitor
--- NOTE | 2021-04-22 05:24 | PC.NURSE ---
Patient's b/p was low t/o the night Dr Edwards was notified. Normal saline bolus was given and blood pressure improved. Patient alert to self and had no c/o pain, or SOA t/o the night. Patient has swelling bilaterally with weeping noted in left arm. Patient on 3L nasal canula sats remained above 90%. Evla cath in place draining clear yellow urine. Dressings intact to ulcers on coccyx and right cheek.
[2021-04-22 06:54] LABS: Basophils % 0.3 % (0.1-2.0); Eosinophils # 0.1 K/mm3 (0.0-0.4); Eosinophils % 0.8 % (0.1-12.0); Lymphocytes # 1.8 K/mm3 (0.7-4.5); Lymphocytes % 20.2 % (10-50); Mean Corpuscular HGB Conc 32.3 g/dL (31.8-35.4); Mean Corpuscular Hemoglobin 36.7 pg (27.0-31.2); Mean Corpuscular Volume 113.4 fl (81-99); Mean Platelet Volume 10.1 fl (7.4-10.4); Monocytes # 0.5 K/mm3 (0.1-1.0); Monocytes % 5.8 % (1.7-9.3); Neutrophils # 6.4 K/mm3 (1.8-7.8); Neutrophils % 72.9 % (37.0-80.0); Platelet Count 155 K/mm3 (142-424); Red Blood Count 2.03 M/mm3 (4.20-5.40); Red Cell Distribution Width 18.2 % (11.5-17.5); White Blood Count 8.8 K/mm3 (4.8-10.8)
[2021-04-22 07:11] LABS: Hemoglobin 7.4 g/dL (12.2-16.2)
[2021-04-22 07:42] LABS: Anion Gap 14.4 mEq/L (5-15); Blood Urea Nitrogen 24 mg/dl (7-17); Calcium 7.9 mg/dl (8.4-10.2); Carbon Dioxide 14 mmol/L (22.0-30.0); Chloride 120 mmol/L (98-107); Creatinine Clearance Estimated 44 mL/min (50-200); Estimated Glomerular Filt Rate 60 ml/min (>60); GFR (African American) 72 ML/MIN (>60); Potassium 4.4 mmoL/L (3.5-5.1); Sodium 144 mmol/L (136-145)
[2021-04-22 07:57] LABS: Glucose 44 mg/dl (74-100)
--- NOTE | 2021-04-22 08:04 | PC.NURSE ---
Notified pt's glucose is 44, amp of d5 given. José Luis Xavi notified @ 0800. She ordered D5 @ 50 ml/hr.
--- NOTE | 2021-04-22 09:25 | HMH.ACPN2 ---
<Chris Hurley - Last Filed: 04/22/21 09:25> Internal Medicine - PN: Subj *Date: 04/22/21 *Time: 08:00 Interval history: pt laying in bed, alert. Exam Vital signs and Labs for Last 24 Hours: Temp Pulse Resp BP Pulse Ox 98.5 F 94 H 18 80/53 L 91 L 04/22/21 07:27 04/22/21 07:27 04/22/21 07:27 04/22/21 07:27 04/22/21 07:27 Laboratory Results - last 24 hr 04/20/21 13:15: Urine Color Yellow, Urine Appearance Cloudy, Urine pH 6.5, Ur Specific [address] 1.020, Urine Protein 1+, Urine Glucose (UA) Negative, Urine Ketones Negative, Urine Blood 2+, Urine Nitrate Negative, Urine Bilirubin 1+ A, Urine Urobilinogen 0.2, Ur Leukocyte Esterase 3+ A, Urine RBC 5-10, Urine WBC 20-50, Ur Squamous Epith Cells Occasional, Urine Bacteria 1+ 04/21/21 07:45: POC Glucose 80 04/21/21 09:10: WBC 8.0, RBC 2.65 L, Hgb 9.5 L, Hct 30.5 L, MCV 115.1 H, MCH 36.0 H, MCHC 31.3 L, RDW 17.3, Plt Count 125 L D, MPV 8.3, Neut % (Auto) 89.1 H, Lymph % (Auto) 7.3 L, [place] % (Auto) 3.1, Eos % (Auto) 0.4, Baso % (Auto) 0.2, Neut # (Auto) 7.1, Lymph # (Auto) 0.6 L, [place] # (Auto) 0.3, Eos # (Auto) 0.0, Baso # (Auto) 0.0, Total Counted 100, Neutrophils % (Manual) 91 H, Lymphocytes % (Manual) 8 L, Monocytes % (Manual) 1 L, Platelet Estimate Normal, Hypochromasia 1+, Macrocytosis 1+ 04/21/21 09:10: Sodium 141, Potassium 4.1 D, Chloride 115 H, Carbon Dioxide 18 L, Anion Gap 12.1, BUN 29 H, Creatinine 1.20 H, Estimated Creat Clear 37, Estimated GFR 43 L, Est GFR ( Amer) 52 L D, Glucose 64 L D, Calcium 7.5 L 04/22/21 06:40: WBC 8.8, RBC 2.03 L, Hgb 7.4 L D, Hct 23.0 L, MCV 113.4 H, MCH 36.7 H, MCHC 32.3, RDW 18.2 H, Plt Count 155, MPV 10.1, Neut % (Auto) 72.9, Lymph % (Auto) 20.2, [place] % (Auto) 5.8, Eos % (Auto) 0.8, Baso % (Auto) 0.3, Neut # (Auto) 6.4, Lymph # (Auto) 1.8, [place] # (Auto) 0.5, Eos # (Auto) 0.1, Baso # (Auto) 0.0 04/22/21 06:40: Sodium 144, Potassium 4.4, Chloride 120 H, Carbon Dioxide 14 L, Anion Gap 14.4, BUN 24 H, Creatinine 0.90 D, Estimated Creat Clear 44, Estimated GFR 60, Est GFR ( Amer) 72 D, Glucose 44 L D, Calcium 7.9 L I & O for Last 24 hours: Intake & Output 04/19/21 04/20/21 04/21/21 04/22/21 11:59 11:59 11:59 11:59 Intake Total 3100 / 3100 1260 / 1260 Output Total 250 / 250 400 / 400 Balance 2850 / 2850 860 / 860 Weight 143 lb 145 lb 8.081 oz 145 lb 8.081 oz Microbiology Reports for the Last 24 Hours: Microbiology 04/20/21 13:15 Urine,Catheterized Urine Culture - Final Klebsiella pneumoniae - Constitutional chronically ill appearing - *Routine HEENT Exam Head: Present: normocephalic Eye: Present: PERRL ENT: Present: mucous membranes moist - *Routine Neck Exam Present: supple. Absent: lymphadenopathy - *Routine Respiratory Exam Present: CTA bilaterally - *Routine Cardiovascular Exam Present: RRR - *Routine Abdominal Exam Present: soft, normoactive bowel sounds. Absent: tenderness - *Routine Extremities Exam Present: edema, normal capillary refill. Absent: cyanosis, clubbing - *Routine Skin Exam Present: warm. Absent: rash - *Routine Neurological Exam Present: alert, altered mental status - Routine Psychiatric Exam Present: normal affect Assessment and Plan (1) UTI (urinary tract infection) Status: Acute Qualifiers: Urinary tract infection type: acute cystitis Hematuria presence: without hematuria Qualified Code(s): N30.00 - Acute cystitis without hematuria Category: Medical Code(s): N39.0 - Urinary tract infection, site not specified (2) JOHNNY (acute kidney injury) Status: Acute Category: Medical Code(s): N17.9 - Acute kidney failure, unspecified (3) Hyperkalemia Status: Acute Category: Medical Code(s): E87.5 - Hyperkalemia (4) Anemia, unspecified Status: Chronic Qualifiers: Anemia type: other cause Other causes of anemia: other cause, not classified Qualified Code(s): D64.89 - Other specified
--- NOTE | 2021-04-22 10:29 | SW/DCPLANNER ---
Addendum entered by [facility] 04/26/21 11:28: Per Tatiana no further COVID testing is needed at time of discharge. Addendum entered by [facility] 04/26/21 11:27: Charlette with Hospice has stated that they will evaluate the patient once she returns to [facility] today. Addendum entered by [facility] 04/26/21 10:46: I have received approval for End of Life Care for this patient. Patient information will be faxed to [facility] Navigators: Hospice can follow up and evaluate this patient at [facility] once she returns. I have notified Tatiana with [facility] and I will update patient Guardian. Addendum entered by [facility] 04/26/21 08:58: End of Life form was completed on Monday and faxed to Alexandrea. I have spoke with Alexandrea this AM and she has stated that she should have the approval soon and that she is in contact with patients family and Guardian. I informed Alexandrea that the plan is to hopefully set this patient up with Hospice care and discharge back to [facility] once we receive approval from EOL status. Addendum entered by [facility] 04/22/21 15:01: Alexandrea has emailed me approval for DNR for this patient. This will be added to patients chart and I have informed and Cj Mcmullen. Addendum entered by [facility] [place] 04/22/21 13:23: Patient information and documentation signed by Dr Garcia has been faxed to [employer] Clerk for DNR request for this patient. Alexandrea has stated that she will follow up with me once information is reviewed. [employer] Clerk fax: [phone] Addendum entered by [facility] [place] 04/22/21 11:48: I have also attempted to contact other Nurse Certified Retinal Angiographer (Alexandrea Sims). Chelle: [phone] Alexandrea: [phone] Original Note: This patient currently resides at [facility] of care and is a [place] of the [facility]. Dr Cruz has requested that this patient be changed to a DNR. I am currently in the process of completing paperwork to fax to Nurse Certified Retinal Angiographer (Chelle Dunham). I have attempted to contact Chelle gomes/ martita and I am awaiting a phone call back. Discharge date is unknown at this time.
--- NOTE | 2021-04-22 11:44 | PC.NURSE ---
FS 104 when rechecked. PICC/MIDLINE attempted and unsuccessful. Dr. Ojeda to place a central line, he is aware.
--- NOTE | 2021-04-22 13:22 | P.OP_ITS ---
Date of procedure: 04/22/21 Pre-op Diagnosis:: Need for venous access Post-op Diagnosis:: Same Procedure performed:: Placement of nontunneled 7 Kinyarwanda triple-lumen in right internal jugular vein Surgeon:: Trace Ojeda MD Anesthesia: local Estimated blood loss (mL): 30 Clinical Note:: Patient is 85-year-old female admitted with sepsis. She has had tenuous IV access. She did have continuous peripheral IV placed under ultrasound. Surgical consultation was obtained for possible central line placement. Attempt was made for midline placement without success. Plan was made to proceed with central venous catheter placement due to failed access peripherally and with midline and PICC line. Operative findings:: Difficult anatomy Operative note:: Patient was positioned in Trendelenburg position. Attention was first turned to left subclavian vein. The area was prepped and draped in the standard surgical fashion. Local anesthetic was infiltrated inferior to the left clavicle. Several passes were made of the 18-gauge catheter. There was brisk blood flow encountered. This was consistent with left subclavian artery cannulation. The catheter was removed. Pressure was held for hemostasis for several minutes. Due to failed attempt at the left subclavian vein attention was turned to the right subclavian vein. The patient was reprepped and draped. Local anesthetic was infiltrated inferior to the right clavicle. 18-gauge needle was inserted manipulating it posterior to the clavicle. There was some return of venous blood. However guidewire can not be threaded. Repeated attempts were made to cannulate the right subclavian vein. At 1 point the right subclavian artery was cannulated and the catheter was removed and pressure was held for several minutes for hemostasis. Attention was then turned to placement in the right internal jugular. Local anesthetic was infiltrated. Needle catheter was inserted. Multiple passes were made without return of any venous blood flow. The SonoSite ultrasound was then brought onto the field. Vein was identified. Multiple additional passes were made of the catheter. Ultimately there was some return of venous blood. Catheter was able to be threaded. Guidewire was then inserted through the catheter. Catheter was removed. Small incision was made at the insertion site. Subcutaneous tissues were dilated. 7 Kinyarwanda triple- lumen catheter was then threaded over the guidewire using Seldinger technique. It was secured to the skin with silk suture. Clean dry sterile dressing was applied. All ports aspirated and flushed without difficulty. Chest x-ray pending at the time of this dictation. Condition: stable Disposition: no change Complications:: None immediately apparent
--- NOTE | 2021-04-22 13:30 | XR_ITS ---
PROCEDURE: XR CHEST PORTABLE CLINICAL HISTORY: Central line placement COMPARISON: CR XR CHEST PORTABLE from 03/12/[address] HEAD/BRAIN WO CON from 03/12/2021 CR XR CHEST PORTABLE from 03/13/2021 CR XR CHEST PORTABLE from 04/20/2021 FINDINGS: Mild cardiomegaly without failure. Right IJ central venous line has been placed. The tip is in the region the SVC. No evidence of pneumothorax. There is moderate patient rotation. Increased density is present in the left lung base with silhouetting out of the hemidiaphragm and may be due to atelectasis or infiltrate with possible small effusion. Patchy density also noted in the right lung base medially suggesting an area of atelectasis or infiltrate. Degenerative changes of the shoulders. IMPRESSION: New right IJ central venous line with the tip in the region the SVC without evidence of pneumothorax. Cardiomegaly with bibasilar airspace disease and possible small left effusion Dictated by: Rafat Hahn MD 04/22/2021 13:37 Rafat Hahn MD in OV 04/22/2021 13:37
[2021-04-22 14:11] LABS: POC Glucose,Bedside 103 (70-110)
--- NOTE | 2021-04-22 15:36 | PC.NURSE ---
WAS CALLED TO PATIENTS ROOM AT 0900 TO ATTEMPT PICC; IV US WAS ATTEMPTED NUMEROUS TIMES WITH NO SUCCESS YESTERDAY. BILATERAL ARMS ARE SWOLLEN AND PATIENT ARMS WERE HARD TO EXTEND. ATTEMPTED TO TRY TO PLACE PICC. WAS NOT ABLE TO GET GUIDE WIRE TO ADVANCE EITHER STICK. CALLED AND LET MD KNOW. CENTRAL LINE WAS THEN ORDERED.
--- NOTE | 2021-04-22 20:45 | PC.NURSE ---
Spoke with BaljeetanAydin this shift in RE to code status. Form was received from cabinet that states pt's code status was changed from a FULL CODE, to a DNR. This RN attempted to fill out form for (our)DNR, (expression of wishes) and did actually speak with Deyanira Hdz,over the phone who gave consent verbally, after speaking with Aydin and him stating he couldn't agree to number 4 on the list, which is, no ventilation. Also, spoke with nurse [employer] ax consultant, she stated she was also unable to give consent, but agreed with form. After, receiving verbal consent from dom [place] care coordination manager, Clare Hogue,supervisor roving department called back and stated the form needed to be retracted r/t number 4 on the form. Clare stated that if pt's heart were to stop, no resuscitation efforts would be done, although at this time if ventilation was warranted r/t better prognosis, that would be allowed. Have updated Dr. Garcia at this time in re to the above. R IJ was placed this shift and pt has had no problems noted with it since placement. Report given to Ricarda Torres RN. VSS at this time. Pt tolerated 1st unit of blood w/o any issues.
--- NOTE | 2021-04-22 21:05 | PC.NURSE ---
Also po meds held r/t pt being unable to take po intake at this time. Did also make Dr. Cruz aware of this.
[2021-04-23] VITALS (16 sets, daily range): BP systolic 93–144; BP diastolic 44–80; PULSE 58–105; RESP 15–22; TEMP 36.5–37.6; O2SAT 91–100; BMI 28.0
[2021-04-23 05:22] LABS: Basophils % 0.4 % (0.1-2.0); Hematocrit 32.1 % (37.0-47.0); Lymphocytes # 0.8 K/mm3 (0.7-4.5); Lymphocytes % 6.4 % (10-50); Mean Corpuscular HGB Conc 32.6 g/dL (31.8-35.4); Mean Corpuscular Hemoglobin 33.3 pg (27.0-31.2); Mean Corpuscular Volume 102.4 fl (81-99); Mean Platelet Volume 9.1 fl (7.4-10.4); Monocytes # 0.3 K/mm3 (0.1-1.0); Monocytes % 2.4 % (1.7-9.3); Neutrophils # 11.1 K/mm3 (1.8-7.8); Neutrophils % 90.9 % (37.0-80.0); Platelet Count 75 K/mm3 (142-424); Red Blood Count 3.14 M/mm3 (4.20-5.40); White Blood Count 12.2 K/mm3 (4.8-10.8)
[2021-04-23 05:24] LABS: MANUAL DIFFERENTIAL MANUAL DIFFERENTIAL (MANUAL DIFF)
[2021-04-23 05:25] LABS: Chloride 114 mmol/L (98-107); Sodium 140 mmol/L (136-145)
[2021-04-23 05:26] LABS: Potassium 3.3 mmoL/L (3.5-5.1)
[2021-04-23 05:29] LABS: Anion Gap 7.3 mEq/L (5-15); Blood Urea Nitrogen 23 mg/dl (7-17); Calcium 7.8 mg/dl (8.4-10.2); Carbon Dioxide 22 mmol/L (22.0-30.0); Creatinine Clearance Estimated 50 mL/min (50-200); Estimated Glomerular Filt Rate 69 ml/min (>60); GFR (African American) 83 ML/MIN (>60); Glucose 139 mg/dl (74-100)
[2021-04-23 05:35] LABS: Hemoglobin 10.5 g/dL (12.2-16.2)
--- NOTE | 2021-04-23 06:13 | PC.NURSE ---
Patient received 2nd unit of blood this shift; due to timing of 1 hour Post H&H lab posted results under the CMP that was drawn this AM. Patient has opened eyes to your voice and moans. VSS Patient had an uneventful night this shift; No acute distress noted this shift; Patient will continue, call light within reach, bed at lowest level for safety; will continue to monitor.
[2021-04-23 06:42] LABS: Anisocytosis 2+; Lymphocytes % 4 % (10-50); Macrocytosis 2+; Monocytes % 1 % (2-9); Neutrophils % 95 % (42-76); Platelet Estimate Normal; Total Cells Counted 100
[2021-04-23 06:43] LABS: Hypochromasia 2+
--- NOTE | 2021-04-23 09:25 | HMH.ACPN2 ---
Internal Medicine - PN: Subj *Date: 04/23/21 *Time: 12:09 Interval history: Ms. 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 Patient was admitted with severe sepsis. Concerning for secondary to urinary tract infection. I was consulted to see patient for second opinion on CODE STATUS and potential transfer to hospice care. On evaluation this morning she is laying in bed supine in moderate distress. She is unresponsive to verbal stimuli, withdraws some from pain but shows no movement on her right side. Appears chronically ill. Per review of chart, she was admitted for sepsis as stated above. Is on broad-spectrum antibiotics. Showing some response to fluid resuscitation however still remains demented and clinical tenuous condition. Unable to assess review of systems this morning as patient is unable to give answers. Persistent staring off into the distance during exam and questioning. Exam Vital signs and Labs for Last 24 Hours: Temp Pulse Resp BP Pulse Ox 97.7 F 83 22 144/68 H 99 04/23/21 07:32 04/23/21 07:32 04/23/21 07:32 04/23/21 07:32 04/23/21 07:32 Laboratory Results - last 24 hr 04/21/21 09:16: Blood Type Confirm O Positive 04/22/21 10:07: Blood Type O Positive, Antibody Screen Negative, Crossmatch (AHG) See Detail 04/22/21 11:13: POC Glucose 103 04/23/21 04:20: WBC 12.2 H D, RBC 3.14 L D, Hgb 10.5 L D, Hct 32.1 L, MCV 102.4 H, MCH 33.3 H, MCHC 32.6, RDW 20.0 H, Plt Count 75 L D, MPV 9.1, Neut % (Auto) 90.9 H, Lymph % (Auto) 6.4 L, [place] % (Auto) 2.4, Eos % (Auto) 0.0 L, Baso % (Auto) 0.4, Neut # (Auto) 11.1 H, Lymph # (Auto) 0.8, Winn # (Auto) 0.3, Eos # (Auto) 0.0, Baso # (Auto) 0.0, Total Counted 100, Neutrophils % (Manual) 95 H, Lymphocytes % (Manual) 4 L, Monocytes % (Manual) 1 L, Platelet Estimate Normal, RBC Morphology Not Reportable, Hypochromasia 2+, Anisocytosis 2+, Macrocytosis 2+ 04/23/21 04:20: Sodium 140, Potassium 3.3 L D, Chloride 114 H, Carbon Dioxide 22, Anion Gap 7.3, BUN 23 H, Creatinine 0.80, Estimated Creat Clear 50, Estimated GFR 69, Est GFR ( Amer) 83, Glucose 139 H D, Calcium 7.8 L I & O for Last 24 hours: Intake & Output 04/20/21 04/21/21 04/22/21 04/23/21 23:59 23:59 23:59 23:59 Intake Total 3100 / 3100 1260 / 1260 0 / 0 0 / 0 Output Total 450 / 450 200 / 200 450 / 450 Balance 3100 / 2850 810 / 810 -200 / -200 -450 / -450 Weight 65.828 kg 66 kg 66 kg 74.389 kg Microbiology Reports for the Last 24 Hours: Microbiology 04/20/21 12:58 Blood Blood Culture - Preliminary NO GROWTH AFTER 48 HOURS 04/20/21 12:00 Blood Blood Culture - Preliminary NO GROWTH AFTER 48 HOURS 04/20/21 13:15 Urine,Catheterized Urine Culture - Final Klebsiella pneumoniae - Constitutional moderate distress, chronically ill appearing, disheveled, somnolent - *Routine HEENT Exam Head: Present: normocephalic Eye: Present: PERRL ENT: Present: mucous membranes dry Comments: bitemporal wasting - *Routine Neck Exam Present: supple. Absent: lymphadenopathy Comments: Central line in right side of neck - *Routine Respiratory Exam Present: rales, distant breath sounds - *Routine Cardiovascular Exam Present: RRR - *Routine Abdominal Exam Present: soft, normoactive bowel sounds. Absent: tenderness - *Routine Extremities Exam Present: edema (1-2+ upper and lower extremities.). Absent: cyanosis, clubbing Comments: sarcopenia - *Routine Skin Exam Present: pallor, warm. Absent: rash - *Routine Neurological Exam Present: alert responds to painful stimuli, no meaningful response to verbal stimuli. Assessment and Plan (1) UTI (urinary tract infection) Status: Acute Qualifiers: Urinary tract infection typ
--- NOTE | 2021-04-23 09:36 | DIET.NUTRFU ---
Addendum entered by Taniya Ugalde 04/26/21 09:40: Pt awaiting hospice consult, remains NPO. Weight stable, no BM t/o stay, K low today 3.1, pt had an episode of hypoglycemia yesterday with BG 44. Original Note: Pt unable to tolerate PO intake, minimally responsive. Pt made NPO per verbal order from Dr. Cruz. Pt to have hospice consult. Will continue to monitor and meet nutritional needs as indicated/appropriate.
--- NOTE | 2021-04-23 12:45 | SW/DCPLANNER ---
SENT PACKET TO THE REVIEWING NURSE BOWL ATTENDANT ON THE INFORMATION THAT WAS REQUESTED TO MAKE THIS PATIENT AN END OF LIFE/PALLIATIVE CARE PATIENT AT [facility] WITH HOSPICE TO FOLLOW.. PATIENT WAS MADE DNR UNDER STATE GUIDELINES, PATIENT IS A [place] OF STATE AND WILL DISCHARGE BACK TO HER CARE HOME BED ONCE APPROVAL HAS BEEN GIVEN.. I HAVE SPOKEN WITH LETY AT [facility] TO LET HER KNOW ONCE WE GET APPROVAL SHE WILL RETURN BACK..
--- NOTE | 2021-04-23 14:55 | HMH.ACPN2 ---
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 She also has severe protein calorie malnutrition and psychiatric disorders. Hospice would be most appropriate for this patient given her circumstances Exam Vital signs and Labs for Last 24 Hours: Temp Pulse Resp BP Pulse Ox 97.7 F 83 22 144/68 H 99 04/23/21 07:32 04/23/21 07:32 04/23/21 07:32 04/23/21 07:32 04/23/21 07:32 Laboratory Results - last 24 hr 04/22/21 10:07: Blood Type O Positive, Antibody Screen Negative, Crossmatch (AHG) See Detail 04/23/21 04:20: WBC 12.2 H D, RBC 3.14 L D, Hgb 10.5 L D, Hct 32.1 L, MCV 102.4 H, MCH 33.3 H, MCHC 32.6, RDW 20.0 H, Plt Count 75 L D, MPV 9.1, Neut % (Auto) 90.9 H, Lymph % (Auto) 6.4 L, [place] % (Auto) 2.4, Eos % (Auto) 0.0 L, Baso % (Auto) 0.4, Neut # (Auto) 11.1 H, Lymph # (Auto) 0.8, [place] # (Auto) 0.3, Eos # (Auto) 0.0, Baso # (Auto) 0.0, Total Counted 100, Neutrophils % (Manual) 95 H, Lymphocytes % (Manual) 4 L, Monocytes % (Manual) 1 L, Platelet Estimate Normal, RBC Morphology Not Reportable, Hypochromasia 2+, Anisocytosis 2+, Macrocytosis 2+ 04/23/21 04:20: Sodium 140, Potassium 3.3 L D, Chloride 114 H, Carbon Dioxide 22, Anion Gap 7.3, BUN 23 H, Creatinine 0.80, Estimated Creat Clear 50, Estimated GFR 69, Est GFR ( Amer) 83, Glucose 139 H D, Calcium 7.8 L I & O for Last 24 hours: Intake & Output 04/20/21 04/21/21 04/22/2101/21 23:59 23:59 23:59 23:59 Intake Total 3100 / 3100 1260 / 1260 0 / 0 0 / 0 Output Total 450 / 450 200 / 200 450 / 450 Balance 3100 / 2850 810 / 810 -200 / -200 -450 / -450 Weight 145 lb 2 oz 145 lb 8.081 oz 145 lb 8.081 oz 164 lb Microbiology Reports for the Last 24 Hours: Microbiology 04/20/21 12:58 Blood Blood Culture - Preliminary NO GROWTH AFTER 48 HOURS 04/20/21 12:00 Blood Blood Culture - Preliminary NO GROWTH AFTER 48 HOURS - Constitutional thin, chronically ill appearing, obtunded - *Routine HEENT Exam Head: Present: normocephalic Eye: Present: EOMI, PERRL ENT: Present: mucous membranes moist - *Routine Neck Exam Present: supple. Absent: lymphadenopathy - *Routine Respiratory Exam Present: CTA bilaterally - *Routine Cardiovascular Exam Present: RRR - *Routine Abdominal Exam Present: soft, normoactive bowel sounds. Absent: tenderness - *Routine Extremities Exam Absent: cyanosis, clubbing, edema - *Routine Skin Exam Present: warm. Absent: rash Assessment and Plan (1) UTI (urinary tract infection) Status: Acute Qualifiers: Urinary tract infection type: acute cystitis Hematuria presence: without hematuria Qualified Code(s): N30.00 - Acute cystitis without hematuria Category: Medical Code(s): N39.0 - Urinary tract infection, site not specified (2) JOHNNY (acute kidney injury) Status: Acute Category: Medical Code(s): N17.9 - Acute kidney failure, unspecified (3) Hyperkalemia Status: Acute Category: Medical Code(s): E87.5 - Hyperkalemia (4) Anemia, unspecified Status: Chronic Qualifiers: Anemia type: other cause Other causes of anemia: other cause, not classified Qualified Code(s): D64.89 - Other specified anemias Category: Medical Code(s): D64.9 - Anemia, unspecified (5) Septic shock Status: Acute Category: Medical Code(s): A41.9 - Sepsis, unspecified organism; R65.21 - Severe sepsis with septic shock (6) Severe protein-calorie malnutrition Status: Acute Category: Medical Code(s): E43 - Unspecified severe protein-calorie malnutrition (7) Dementia Status: Acute Category: Medical Code(s): F03.90 - Unspecified dementia without behavioral disturbance (8) Age-related physical alvin
--- NOTE | 2021-04-23 17:44 | PC.NURSE ---
PT IS RESTING IN BED. CONTINUES TO BE NON VERBAL. RESPONDS VERY MINIMALLY TO PAINFUL STIMULI. TURNED AND REPOSITIONED IN BED. UNSTAGEABLE ULCER NOTED TO COCCYX WITH AN ADDITIONAL STAGE 2 NOTED TO THE RT BUTTOCKS. DRESSINGS C/D/I. 3+ BUE EDEMA WITH WEEPING. ORAL CARE PROVIDED. PT WAS UNABLE TO TOLERATE PO MEDICATIONS THIS MORNING. ORAL CARE PROVIDED. O2 SATURATION HAS MAINTAINED 90-93% ON 2 L NC. WILL CONTINUE TO MONITOR.
[2021-04-24 04:00] VITALS: BP 129/92; PULSE 86; RESP 16; TEMP 36.2; O2SAT 90
--- NOTE | 2021-04-24 04:41 | PC.NURSE ---
pt is alert to self, has remained on 3L NC t/o shift, O2 sats 90-91%, dressings remain in place to coccyx and right buttocks, C/D/I, has been turned Q2, saucedo remains in place
[2021-04-24 07:22] VITALS: BP 122/76; PULSE 81; RESP 22; O2SAT 98
[2021-04-24 08:00] VITALS: PULSE 81; RESP 22; O2SAT 98
[2021-04-24 08:43] LABS: Basophils % 0.4 % (0.1-2.0); Eosinophils % 0.5 % (0.1-12.0); Hematocrit 31.7 % (37.0-47.0); Hemoglobin 10.2 g/dL (12.2-16.2); Lymphocytes # 1.2 K/mm3 (0.7-4.5); Lymphocytes % 16.1 % (10-50); Mean Corpuscular HGB Conc 32.3 g/dL (31.8-35.4); Mean Corpuscular Hemoglobin 33.1 pg (27.0-31.2); Mean Corpuscular Volume 102.4 fl (81-99); Mean Platelet Volume 9.5 fl (7.4-10.4); Monocytes # 0.2 K/mm3 (0.1-1.0); Monocytes % 2.1 % (1.7-9.3); Neutrophils # 5.9 K/mm3 (1.8-7.8); Platelet Count 68 K/mm3 (142-424); Red Blood Count 3.09 M/mm3 (4.20-5.40); Red Cell Distribution Width 20.6 % (11.5-17.5); White Blood Count 7.3 K/mm3 (4.8-10.8)
[2021-04-24 09:01] LABS: Chloride 114 mmol/L (98-107); Potassium 3.2 mmoL/L (3.5-5.1); Sodium 137 mmol/L (136-145)
[2021-04-24 09:04] LABS: Anion Gap 3.2 mEq/L (5-15); Blood Urea Nitrogen 20 mg/dl (7-17); Calcium 7.7 mg/dl (8.4-10.2); Carbon Dioxide 23 mmol/L (22.0-30.0); Creatinine Clearance Estimated 50 mL/min (50-200); Estimated Glomerular Filt Rate 80 ml/min (>60); GFR (African American) 97 ML/MIN (>60); Glucose 92 mg/dl (74-100)
--- NOTE | 2021-04-24 09:42 | HMH.ACPN2 ---
Internal Medicine - PN: Subj *Date: 04/24/21 *Time: 09:45 Interval history: pt more alert this am -has stable labs and kleb pneumoniae in urine - will change to roch Exam Vital signs and Labs for Last 24 Hours: Temp Pulse Resp BP Pulse Ox 97.2 F L 81 22 122/76 98 04/24/21 04:00 04/24/21 07:22 04/24/21 07:22 04/24/21 07:22 04/24/21 07:22 Laboratory Results - last 24 hr 04/24/21 08:30: WBC 7.3 D, RBC 3.09 L, Hgb 10.2 L, Hct 31.7 L, MCV 102.4 H, MCH 33.1 H, MCHC 32.3, RDW 20.6 H, Plt Count 68 L, MPV 9.5, Neut % (Auto) 81.0 H, Lymph % (Auto) 16.1, [place] % (Auto) 2.1, Eos % (Auto) 0.5, Baso % (Auto) 0.4, Neut # (Auto) 5.9, Lymph # (Auto) 1.2, [place] # (Auto) 0.2, Eos # (Auto) 0.0, Baso # (Auto) 0.0 04/24/21 08:30: Sodium 137, Potassium 3.2 L, Chloride 114 H, Carbon Dioxide 23, Anion Gap 3.2 L, BUN 20 H, Creatinine 0.70, Estimated Creat Clear 50, Estimated GFR 80, Est GFR ( Amer) 97, Glucose 92, Calcium 7.7 L I & O for Last 24 hours: Intake & Output 04/21/21 04/22/21 04/23/21 04/24/21 11:59 11:59 11:59 11:59 Intake Total 3100 / 3100 1260 / 1260 0 / 0 0 / 0 Output Total 250 / 250 400 / 400 450 / 450 200 / 200 Balance 2850 / 2850 860 / 860 -450 / -450 -200 / -200 Weight 145 lb 8.081 oz 145 lb 8.081 oz 164 lb - Constitutional no acute distress - *Routine HEENT Exam Head: Present: normocephalic Eye: Present: EOMI, PERRL ENT: Present: mucous membranes dry - *Routine Neck Exam Absent: JVD - *Routine Respiratory Exam Present: decreased breath sounds - *Routine Cardiovascular Exam Present: RRR - *Routine Abdominal Exam Present: soft - *Routine Extremities Exam Absent: calf tenderness - *Routine Skin Exam Present: intact - *Routine Neurological Exam no posturing - Routine Psychiatric Exam Present: unable to assess Assessment and Plan (1) UTI (urinary tract infection) Status: Acute Qualifiers: Urinary tract infection type: acute cystitis Hematuria presence: without hematuria Qualified Code(s): N30.00 - Acute cystitis without hematuria Category: Medical Code(s): N39.0 - Urinary tract infection, site not specified (2) JOHNNY (acute kidney injury) Status: Acute Category: Medical Code(s): N17.9 - Acute kidney failure, unspecified (3) Hyperkalemia Status: Acute Category: Medical Code(s): E87.5 - Hyperkalemia (4) Anemia, unspecified Status: Chronic Qualifiers: Anemia type: other cause Other causes of anemia: other cause, not classified Qualified Code(s): D64.89 - Other specified anemias Category: Medical Code(s): D64.9 - Anemia, unspecified (5) Septic shock Status: Acute Category: Medical Code(s): A41.9 - Sepsis, unspecified organism; R65.21 - Severe sepsis with septic shock (6) Severe protein-calorie malnutrition Status: Acute Category: Medical Code(s): E43 - Unspecified severe protein-calorie malnutrition (7) Dementia Status: Acute Category: Medical Code(s): F03.90 - Unspecified dementia without behavioral disturbance (8) Age-related physical debility Status: Chronic Category: Medical Code(s): R54 - Age-related physical debility (9) Bipolar disorder, unspecified Status: Chronic Qualifiers: Active/Remission status: in remission of unspecified degree Qualified Code(s): F31.70 - Bipolar disorder, currently in remission, most recent episode unspecified Category: Medical Code(s): F31.9 - Bipolar disorder, unspecified (10) Hemiplegia and hemiparesis following cerebral infarction affecting right dominant side Status: Chronic Category: Medical Code(s): I69.351 - Hemiplegia and hemiparesis following cerebral infarction affecting right dominant side (11) Lymphedema, not elsewhere classified Status: Chronic Category: Medical Code(s): I89.0 - Lymphedema, not elsewhere classified (12) UTI due to Klebsiella species Status: Acute Category: Medical Code(s): N39.0 - Urinary
[2021-04-24 16:00] VITALS: BP 111/83; PULSE 86; RESP 20; TEMP 36.5; O2SAT 98
--- NOTE | 2021-04-24 18:26 | PC.NURSE ---
Pt has been pleasant and cooperative this shift. Alert to self. Pt is currently receiving O2 via NC @ 3 LPM with sats. >90%. Lung sounds are diminished. 2+ pitting edema noted to BUE. Multiple ulcerations noted to coccyx/buttocks and covered with pressure-relief dressings. Pt has not been OOB this shift. Pt has been turned Q2H today. Pt has received oral care Q2H today. F/C is patent and draining clear, dark-yellow urine at bedside to gravity. No BM thus far this shift. Pt continues to be NPO. 20 G peripheral IV in the RT wrist is patent and SL. Central line noted to RT jugular patent and infusing D5W @ 50 ML/HR. VSS. Call light within reach. Will continue to monitor.
[2021-04-24 19:35] VITALS: BP 119/63; PULSE 89; RESP 18; O2SAT 96
[2021-04-24 20:00] VITALS: RESP 18; O2SAT 96
[2021-04-25] VITALS: O2SAT 96
[2021-04-25 03:45] VITALS: BP 124/78; PULSE 83; RESP 14; TEMP 36.6; O2SAT 98
[2021-04-25 05:10] VITALS: BMI 26.4
[2021-04-25 06:18] LABS: Basophils % 0.3 % (0.1-2.0); Eosinophils # 0.1 K/mm3 (0.0-0.4); Eosinophils % 0.7 % (0.1-12.0); Hematocrit 31.2 % (37.0-47.0); Hemoglobin 10.2 g/dL (12.2-16.2); Lymphocytes # 1.8 K/mm3 (0.7-4.5); Mean Corpuscular HGB Conc 32.6 g/dL (31.8-35.4); Mean Corpuscular Hemoglobin 33.2 pg (27.0-31.2); Mean Corpuscular Volume 101.8 fl (81-99); Mean Platelet Volume 9.4 fl (7.4-10.4); Monocytes # 0.2 K/mm3 (0.1-1.0); Monocytes % 2.9 % (1.7-9.3); Neutrophils # 5.4 K/mm3 (1.8-7.8); Neutrophils % 72.1 % (37.0-80.0); Platelet Count 69 K/mm3 (142-424); Red Blood Count 3.07 M/mm3 (4.20-5.40); Red Cell Distribution Width 20.7 % (11.5-17.5); White Blood Count 7.5 K/mm3 (4.8-10.8)
[2021-04-25 06:22] LABS: Chloride 109 mmol/L (98-107)
[2021-04-25 06:23] LABS: Potassium 3.1 mmoL/L (3.5-5.1); Sodium 134 mmol/L (136-145)
[2021-04-25 06:26] LABS: Anion Gap 4.1 mEq/L (5-15); Blood Urea Nitrogen 15 mg/dl (7-17); Calcium 7.6 mg/dl (8.4-10.2); Carbon Dioxide 24 mmol/L (22.0-30.0); Creatinine Clearance Estimated 47 mL/min (50-200); Estimated Glomerular Filt Rate 95 ml/min (>60); GFR (African American) 116 ML/MIN (>60); Glucose 83 mg/dl (74-100)
[2021-04-25 08:00] VITALS: BP 111/63; PULSE 87; RESP 20; TEMP 36.3; O2SAT 98
--- NOTE | 2021-04-25 08:09 | PC.NURSE ---
Patient's RIJ dressing changed 04/24/2021. No s/s of acute distress noted this shift, call light within reach, bed at lowest level for safety; will continue to monitor.
--- NOTE | 2021-04-25 10:00 | HMH.ACPN2 ---
Internal Medicine - PN: Subj *Date: 04/25/21 *Time: 10:00 Interval history: arousable but lethargic this am - labs ok with low k - on abx - hospice pending Exam Vital signs and Labs for Last 24 Hours: Temp Pulse Resp BP Pulse Ox 97.3 F L 87 20 111/63 98 04/25/21 08:00 04/25/21 08:00 04/25/21 08:00 04/25/21 08:00 04/25/21 08:00 Laboratory Results - last 24 hr 04/25/21 05:55: WBC 7.5, RBC 3.07 L, Hgb 10.2 L, Hct 31.2 L, MCV 101.8 H, MCH 33.2 H, MCHC 32.6, RDW 20.7 H, Plt Count 69 L, MPV 9.4, Neut % (Auto) 72.1, Lymph % (Auto) 24.0, [place] % (Auto) 2.9, Eos % (Auto) 0.7, Baso % (Auto) 0.3, Neut # (Auto) 5.4, Lymph # (Auto) 1.8, [place] # (Auto) 0.2, Eos # (Auto) 0.1, Baso # (Auto) 0.0 04/25/21 05:55: Sodium 134 L, Potassium 3.1 L, Chloride 109 H, Carbon Dioxide 24, Anion Gap 4.1 L, BUN 15, Creatinine 0.60, Estimated Creat Clear 47, Estimated GFR 95, Est GFR ( Amer) 116, Glucose 83, Calcium 7.6 L I & O for Last 24 hours: Intake & Output 04/22/21 04/23/21 04/24/21 04/25/21 11:59 11:59 11:59 11:59 Intake Total 1260 / 1260 0 / 0 0 / 0 2357 / 2358 Output Total 400 / 400 450 / 450 200 / 200 400 / 400 Balance 860 / 860 -450 / -450 -200 / -200 1957 Weight 145 lb 8.081 oz 164 lb 155 lb 2 oz - Constitutional no acute distress, somnolent - *Routine HEENT Exam Head: Present: normocephalic Eye: Present: EOMI, PERRL ENT: Present: mucous membranes dry - *Routine Neck Exam Absent: JVD - *Routine Respiratory Exam Present: decreased breath sounds - *Routine Cardiovascular Exam Present: RRR - *Routine Abdominal Exam Present: soft - *Routine Extremities Exam Absent: calf tenderness - *Routine Skin Exam Present: dry - *Routine Neurological Exam Present: altered mental status - Routine Psychiatric Exam Present: unable to assess Assessment and Plan (1) UTI (urinary tract infection) Status: Acute Qualifiers: Urinary tract infection type: acute cystitis Hematuria presence: without hematuria Qualified Code(s): N30.00 - Acute cystitis without hematuria Category: Medical Code(s): N39.0 - Urinary tract infection, site not specified (2) JOHNNY (acute kidney injury) Status: Acute Category: Medical Code(s): N17.9 - Acute kidney failure, unspecified (3) Hyperkalemia Status: Acute Category: Medical Code(s): E87.5 - Hyperkalemia (4) Anemia, unspecified Status: Chronic Qualifiers: Anemia type: other cause Other causes of anemia: other cause, not classified Qualified Code(s): D64.89 - Other specified anemias Category: Medical Code(s): D64.9 - Anemia, unspecified (5) Septic shock Status: Acute Category: Medical Code(s): A41.9 - Sepsis, unspecified organism; R65.21 - Severe sepsis with septic shock (6) Severe protein-calorie malnutrition Status: Acute Category: Medical Code(s): E43 - Unspecified severe protein-calorie malnutrition (7) Dementia Status: Acute Category: Medical Code(s): F03.90 - Unspecified dementia without behavioral disturbance (8) Age-related physical debility Status: Chronic Category: Medical Code(s): R54 - Age-related physical debility (9) Bipolar disorder, unspecified Status: Chronic Qualifiers: Active/Remission status: in remission of unspecified degree Qualified Code(s): F31.70 - Bipolar disorder, currently in remission, most recent episode unspecified Category: Medical Code(s): F31.9 - Bipolar disorder, unspecified (10) Hemiplegia and hemiparesis following cerebral infarction affecting right dominant side Status: Chronic Category: Medical Code(s): I69.351 - Hemiplegia and hemiparesis following cerebral infarction affecting right dominant side (11) Lymphedema, not elsewhere classified Status: Chronic Category: Medical Code(s): I89.0 - Lymphedema, not elsewhere classified (12) UTI due to Klebsiella species Status: Acute Category: Medical Code(s): N39.0 - Uri
[2021-04-25 15:08] VITALS: BP 132/64; PULSE 100; RESP 20; TEMP 37.1; O2SAT 97
[2021-04-25 20:00] VITALS: BP 134/60; PULSE 98; RESP 19; TEMP 37.1; O2SAT 97
[2021-04-26 04:00] VITALS: BP 110/64; PULSE 96; RESP 17; TEMP 36.6; O2SAT 96
[2021-04-26 05:08] VITALS: BMI 26.3
[2021-04-26 08:00] VITALS: BP 122/86; PULSE 89; RESP 14; TEMP 36.3; O2SAT 97
--- NOTE | 2021-04-26 11:15 | HMH.DCSUM ---
General - General Admission date:: 04/20/21 Discharge date: 04/26/21 HPI HPI: this patient was sent from [facility]--year-old female presenting to the emergency department from [facility] with altered mental status. Staff today noticed that she seemed more confused, fatigued. She has a history of urinary tract infections. They are concerned for repeat infection and possible sepsis. Patient is complaining of pain in both of her legs. Denies any abdominal pain, dysuria, fevers, chills, chest pain, headache. No known falls. No recent nausea or vomiting. No recent antibiotic use. summary this is an 85-year-old female with history of frequent urinary tract infections and dementia presenting to the emergency department with altered mental status. Patient clinically stable on arrival. Concern for urinary tract infection, sepsis, anemia, pneumonia, Covid. Will obtain CBC, CMP, urinalysis, chest x-ray, EKG, troponin profile, noncontrasted head CT. Given IV fluid bolus and 2 g IV Rocephin Initial laboratory results show hyperkalemia at 5.9. Patient given 1 g calcium gluconate. 10 units IV insulin and 1 amp D50. Other labs show chronic kidney disease with creatinine of 1.4. Urinalysis shows signs of acute urinary tract infection. Patient's blood pressure down trended, now concern for severe sepsis. She has received 1 L IV fluid. Will broaden to 30 cc/kg. Given ertapenem. Blood cultures pending. After 2 L of IV fluids, calcium, insulin, glucose patient was much more awake and alert. She is speaking in full sentences. Blood pressure responded appropriately, mean arterial pressure now 70. Presentation most concerning for urinary tract infection. Will admit for further management. Hospital Course Hospital Course: Laboratory Tests 04/20/21 04/20/21 04/20/21 12:00 12:00 12:00 WBC 9.1 RBC 2.73 L Hgb 10.0 L Hct 31.2 L MCV 114.4 H MCH 36.5 H MCHC 31.9 RDW 17.6 H Plt Count 222 MPV 9.6 Neut % (Auto) 76.0 Lymph % (Auto) 19.2 [place] % (Auto) 4.2 Eos % (Auto) 0.3 Baso % (Auto) 0.3 Neut # (Auto) 6.9 Lymph # (Auto) 1.7 [place] # (Auto) 0.4 Eos # (Auto) 0.0 Baso # (Auto) 0.0 Total Counted Neutrophils % (Manual) Lymphocytes % (Manual) Monocytes % (Manual) Platelet Estimate RBC Morphology Hypochromasia Anisocytosis Macrocytosis Sodium Potassium Chloride Carbon Dioxide Anion Gap BUN Creatinine Estimated Creat Clear Estimated GFR Est GFR ( Amer) Glucose POC Glucose Lactate 1.5 Calcium Total Bilirubin AST ALT Alkaline Phosphatase Total Protein Albumin Globulin Albumin/Globulin Ratio Lipase Procalcitonin Urine Color Urine Appearance Urine pH Ur Specific [place] Urine Protein Urine Glucose (UA) Urine Ketones Urine Blood Urine Nitrate Urine Bilirubin Urine Urobilinogen Ur Leukocyte Esterase Urine RBC Urine WBC Ur Squamous Epith Cells Urine Bacteria SARS-CoV-2 (PCR) Not detected Influenza A Untype (PCR) Not detected Influenza Type B (PCR) Not detected Blood Type Blood Type Confirm Antibody Screen Crossmatch ([facility]) 04/20/21 04/20/21 04/20/21 12:58 12:58 13:15 WBC RBC Hgb Hct MCV MCH MCHC RDW Plt Count MPV Neut % (Auto) Lymph % (Auto) [place] % (Auto) Eos % (Auto) Baso % (Auto) Neut # (Auto) Lymph # (Auto) [place] # (Auto) Eos # (Auto) Baso # (Auto) Total Counted Neutrophils % (Manual) Lymphocytes % (Manual) Monocytes % (Manual) Platelet Estimate RBC Morphology Hypochromasia Anisocytosis Macrocytosis Sodium 135 L Potassium 5.9 H Chloride 103 Carbon Dioxide 25 Anion Gap 12.9 BUN 38 H Creatinine 1.40 H Estimated Creat C
--- NOTE | 2021-04-26 14:11 | PC.NURSE ---
Patient to b discharged back to [place]. Patient is bed bound and on 3L NC. Vela Catheter removed and right IJ removed, patient tolerated well. Report called to Randa Douglass.
== END 2021-04-26 14:00 | DRG 871 ==
LOC: ER 16:08 → 2ND 17:27
PROVIDERS: Nurse Practitioner Family; Admitting Provider Emergency Medicine; Emergency Provider Emergency Medicine; PCP Emergency Medicine; Visit Provider Emergency Medicine
DX: A41.50 Gram-negative sepsis, unspecified (principal); E43 Unspecified severe protein-calorie malnutrition; R65.21 Severe sepsis with septic shock; N30.00 Acute cystitis without hematuria; N17.9 Acute kidney failure, unspecified; I69.351 Hemiplegia and hemiparesis following cerebral infarction affecting right dominant side; Z51.5 Encounter for palliative care; Z20.822 Contact with and (suspected) exposure to COVID-19; Z68.23 Body mass index [BMI] 23.0-23.9, adult; D64.9 Anemia, unspecified; Z66 Do not resuscitate; I89.0 Lymphedema, not elsewhere classified; I25.10 Atherosclerotic heart disease of native coronary artery without angina pectoris; I10 Essential (primary) hypertension; I73.9 Peripheral vascular disease, unspecified; E87.5 Hyperkalemia; Z68.26 Body mass index [BMI] 26.0-26.9, adult; F31.9 Bipolar disorder, unspecified; F03.90 Unspecified dementia, unspecified severity, without behavioral disturbance, psychotic disturbance, mood disturbance, and anxiety
CPT/HCPCS: 36556; 36415; 70450; 71045; 80048; 80053; 81001; 82962; 83605; 83690; 84145; 85007; 85025; 86850; 87040; 87086; 87088; 87186; 96365; 96366; 96375; 99285; C1751; C9803; J1335; P9016; U0003; U0005